=== PATIENT | female | born 1990 | race Caucasian/White ===

== ENCOUNTER 2023-02-11 12:57 | Inpatient (IN) ==
[2023-02-11 14:14] LABS: Basophils # (auto) 0.05 K/uL (0.00-0.20); Eosinophils # (auto) 0.01 K/uL (0.00-0.50); Eosinophils % (auto) 0.2 %; Hematocrit (blood only) 38.7 % (37.0-47.0); Immature Granulocytes # (auto) 0.01 K/uL (0.01-0.20); Immature Granulocytes % (auto) 0.2 %; Lymphocytes # (auto) 1.19 K/uL (1.20-3.40); Lymphocytes % (auto) 24.6 %; Mean Corpuscular Hemoglobin 24.6 pg (25.0-34.0); Mean Corpuscular Volume 79.3 fL (80.0-100.0); Mean Platelet Volume 11.3 fL (9.4-12.4); Monocytes # (auto) 0.61 K/uL (0.11-0.59); Monocytes % (auto) 12.6 %; Neutrophils # (auto) 2.96 K/uL (1.40-6.50); Neutrophils % (auto) 61.4 %; Platelet Count 342 K/uL (130-400); RDW Coefficient of Variation 15.5 % (11.5-14.5); RDW Standard Deviation 44.4 fL (36.4-46.3); Red Blood Count 4.88 M/uL (4.20-5.40); White Blood Count 4.83 K/ul (4.8-10.8)
[2023-02-11 14:24] LABS: Acetaminophen < 3 ug/ml (10-30); Salicylate < 3.0 mg/dl (3.0-30)
[2023-02-11 14:27] LABS: Albumin Globulin Ratio 1.1 (0.9-2); Albumin Level 4.2 gm/dl (3.4-5.0); BUN Creatinine Ratio 10.9 (10-20); Bilirubin,Total 0.6 mg/dl (0.2-1.0); Calcium 9.6 mg/dl (8.6-10.3); Creatinine Clr Calc Pharmacy 151.7 ml/min; Est GFR (African American) 143.8 ml/min; Est GFR (Non-African American) 124.1 ml/min; Globulin 3.7 gm/dl (2.5-4.0); Potassium 2.9 mmol/L (3.5-5.1); Total Protein 7.9 gm/dl (6.0-8.3)
[2023-02-11 14:40] LABS: Thyroid Stimulating Hormone 1.287 uIu/ml (0.300-4.500)
--- NOTE | 2023-02-11 15:01 | Emergency Department Note ---
Impression & Plan Suicidal ideation, Major depressive disorder, recurrent, severe without psychotic features ED Provider Note NAME: SHADY RASMUSSEN AGE: 32 SEX: F : 1990 ARRIVES VIA: Walk-In INFORMANT: Patient, ED PROVIDER(S): Richard Fowler MD CHIEF COMPLAINT: SI HPI: This is a 32-year-old female presenting for suicidal ideation. Patient states that she was here about 1 to 2 weeks ago for her suicide ideation. She states that she had an inpatient stay at [facility]. During the stay she did not feel that she got the help she needed and actually feels the same if not worse than previously. She is still suicidal, has no energy to live. She states she has had thoughts of strangling/hanging herself. She is requesting voluntary admission for mental health treatment. She has had no medical issues at this time including fever, chills, nausea, vomiting, chest pain, shortness of breath. She does have a history of idiopathic intracranial hypertension but has had no headache or other symptoms. ROS: See above HPI for pertinent positives & negatives. A total of 10 systems reviewed and were otherwise negative. PAST MEDICAL HISTORY: See Below PAST SURGICAL HISTORY: See Below FAMILY HISTORY: See Below SOCIAL HISTORY: See Below HOME MEDICATIONS: See Below ALLERGIES: See Below VITALS: See Below PHYSICAL EXAMINATION: General: resting comfortably in no acute distress Head: Normocephalic and atraumatic Eyes: Normal inspection, extraocular muscles intact Ear, nose, throat: Normal external exam Neck: Normal range of motion Respiratory: lungs clear to auscultation bilaterally Cardiovascular: Regular rate/rhythm, no murmur GI: soft, nontender, no guarding or rebound Extremities: nontender, moves all extremities Neuro: The patient awake and alert, appropriately conversive, no focal deficits, symmetric faces Skin: Warm, dry, and intact Psych: Tearful, withdrawn MEDICAL DECISION MAKING: This is a 32-year-old female presenting for suicidal ideation. We will screening blood work, patient has no acute medical complaints at this time. Patient's medical screening exam here is reassuring. Patient is medically clear for psychiatric involvement. Patient will be referred to psychiatric floor here. Triage Nursing notes reviewed. 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 Required: No Beliefs That Will Affect Care: None Feels Safe at Home: Yes Gender Identity: Female Assistive Devices: None Allergies Allergies Allergy/AdvReac Type Severity Reaction Status Date / Time amoxicillin Allergy Intermediate Rash Verified 08/23/22 22:00 clavulanic acid Allergy Intermediate Rash Verified 08/23/22 22:00 Home Meds Home Medications Medication Instructions Recorded Confirmed acetazolamide 500 mg 500 mg PO BID 02/12/23 02/12/23 capsule,extended release sertraline 50 mg tablet 50 mg PO DAILY 02/12/23 02/12/23 Results & Data (ED) Vital Signs Vital Signs - 24 hr 02/11/23 13:05 02/11/23 13:30 Temperature 36.8 C 36.8 C Temperature Source Temporal Artery Scan Oral Pulse Rate 72 Pulse Rate [Bilateral] 72 Respiratory Rate 20 18 Respiratory Effort / Characteristics Non-Labored Spontaneous Respiratory Depth Normal Blood Pressure 119/87 Blood Pressure [Right Arm] 119/87 Blood Pressure Mean 97 Blood Pressure Mean [Right Arm] 97 Pulse Oximetry 97 97 Oxygen Delivery Method Room Air Room Air Sepsis Recent Fever Within 48 Hours No Sepsis New/Unexplained Change in Mental Status No Sepsis Action Taken by Nursing No Action Required Laboratory Data 02/11/23 13:32 02/13/23 17:34 Lab Results 02/11/23 02/11/23 02/11/23 Range/Units 13:32 14:15 16:50 WBC 4.83 (4.8-10.8) K/ul RBC 4.88 (4.20-5.40) M/uL Hgb 12.0 (12.0-16.0) g/dl Hct 38.7 (37.0-47.0) % MCV 79.3 L (80.0-100.0) fL MCH 24.6 L (25.0-34.0) pg MCHC 31.0 L (32.0-36.0) g/dL RDW Std Deviation 44.4 (36.4-46.3) fL RDW Coeff of Krista 15.5 H (11.5-14.5) % Plt Count 342 (130-400) K/uL MPV 11.3 (9.4-12.4) fL Immature Gran % (Auto) 0.2 % Neut % (Auto) 61.4 % Lymph % (Auto) 24.6 % Grant % (Auto) 12.6 % Eos % (Auto) 0.2 % Baso % (Auto) 1.0 % Neut # (Auto) 2.96 (1.40-6.50) K/uL Lymph # (Auto) 1.19 L (1.20-3.40) K/uL Grant # (Auto) 0.61 H (0.11-0.59) K/uL Eos # (Auto) 0.01 (0.00-0.50) K/uL Baso # (Auto) 0.05 (0.00-0.20) K/uL Immature Gran # (Auto) 0.01 (0.01-0.20) K/uL ESR 26 H (0-20) mm/hr Sodium 138 (136-145) mmol/L Potassium 2.9 L (3.5-5.1) mmol/L Chloride 99 (98-107) mmol/L Carbon Dioxide 25 (21-32) mmol/L Anion Gap 14 H (3-11) BUN 6 (6-23) mg/dl Creatinine 0.55 L (0.6-1.2) mg/dl Est Cr Clr Drug Dosing 151.7 ml/min Est GFR ( Amer) 143.8 ml/min Est GFR (Non-Af Amer) 124.1 ml/min BUN/Creatinine Ratio 10.9 (10-20) Glucose 92 (70-99(Fasting)) mg/dl Calcium 9.6 (8.6-10.3) mg/dl Total Bilirubin 0.6 (0.2-1.0) mg/dl AST 16 (13-39) U/L ALT 14 (7-52) U/L Alkaline Phosphatase 52 (34-104) U/L Total Protein 7.9 (6.0-8.3) gm/dl Albumin 4.2 (3.4-5.0) gm/dl Globulin 3.7 (2.5-4.0) gm/dl Albumin/Globulin Ratio 1.1 (0.9-2) Vitamin B12 846 (180-914) pg/ml 25-OH Vitamin D Total 25.0 L (30-100) ng/ml Folate 18.04 (>5.38) ng/ml TSH 1.287 (0.300-4.500) uIu/ml Urine Color Yellow Urine Appearance Cloudy A (Clear) Urine pH 6.5 (4.5-7.5) Ur Specific [place] 1.016 (1.000-1.030) Urine Protein Negative (Negative) Urine Glucose (UA) Negative (Negative) Urine Ketones 4+ H (Negative) Urine Blood Negative (Negative) Urine Nitrite Negative (Negative) Urine Bilirubin Negative (Negative) Urine Urobilinogen Negative (Negative) Ur Leukocyte Esterase Negative (Negative) Urine WBC (Auto) 1-5 (0-5) /hpf Urine RBC (Auto) 0-4 (0-4) /hpf U Hyaline Cast (Auto) 1-5 (0-5) /lpf U Epithel Cells (Auto) >30 H (0-5) /lpf Urine Bacteria (Auto) 1+ H (Negative) Salicylates < 3.0 L (3.0-30) mg/dl Urine Opiates Screen Neg (Neg) Ur Methadone, Qual Neg (Neg) Acetaminophen < 3 L (10-30) ug/ml Urine Barbiturates Neg (Neg) Ur Phencyclidine (PCP) Neg (Neg) U Amphetamin/Meth Scrn Neg (Neg) MDMA (Ecstasy) Screen Neg (Neg) U Benzodiazepines Scrn Neg (Neg) Ur Cocaine Metabolite Neg (Neg) U Marijuana (THC) Screen Neg (Neg) Ethyl Alcohol mg/dL < 10.0 (<10.0) mg/dl SARS-CoV-2, RNA, NAAT NEGATIVE (NEGATIVE) Administered Medications Clonazepam (Clonazepam 0.5 Mg Tab) 0.5 mg PO BID DORIS Stop: 03/14/23 20:59 Last Admin: 02/14/23 09:15 Dose: 0.5 mg Documented By: Admin: 02/13/23 21:32 Dose: 0.5 mg Documented By: Admin: 02/13/23 08:49 Dose: 0.5 mg Documented By: Admin: 02/12/23 20:49 Dose: 0.5 mg Documented By: RB Ergocalciferol (Ergocalciferol 50,000 Units 1250 Mcg Cap) 50,000 units PO SuWe@0900 [facility] Stop: 03/15/23 16:29 Last Admin: 02/13/23 17:46 Dose: 50,000 units Documented By: CHIP Lorazepam (Lorazepam 0.5 Mg Tab) 0.5 mg PO BID PRN PRN Reason: Anxiety Stop: 03/13/23 21:02 Last Admin: 02/13/23 06:33 Dose: 0.5 mg Documented By: Admin: 02/12/23 06:21 Dose: 0.5 mg Documented By: LIN Potassium Chloride (Potassium Chloride 20 Meq/15 Ml Udc) 20 meq PO BID DORIS Stop: 03/15/23 20:59 Last Admin: 02/14/23 09:16 Dose: 20 meq Documented By: Admin: 02/13/23 21:30 Dose: 20 meq Documented By: CHIP Sertraline HCl (Sertraline Hcl 50 Mg Tablet) 150 mg PO QAM [facility] Stop: 03/15/23 08:59 Last Admin: 02/14/23 09:15 Dose: 150 mg Documented By: Admin: 02/13/23 08:50 Dose: 150 mg Documented By: FRANSISCA Discontinued Medications Clonazepam (Clonazepam 0.5 Mg Tab) 0.5 mg PO NOW STA Stop: 02/12/23 15:27 Last Admin: 02/12/23 15:32 Dose: 0.5 mg Documented By: TLF Potassium Chloride (Potassium Chloride Crtab 20 Meq Tabcr) 20 meq PO BID DORIS Stop: 03/13/23 20:59 Last Admin: 02/13/23 08:49 Dose: 20 meq Documented By: Admin: 02/12/23 20:49 Dose: 20 meq Documented By: Admin: 02/12/23 10:05 Dose: 20 meq Documented By: Admin: 02/11/23 21:33 Dose: 20 meq Documented By: REY Sertraline HCl (Sertraline Hcl 100 Mg Tablet) 100 mg PO QAM [facility] Stop: 03/14/23 08:59 Last Admin: 02/12/23 08:46 Dose: 100 mg Documented By: ADONIS Sertraline HCl (Sertraline Hcl 50 Mg Tablet) 50 mg PO ONE ONE Stop: 02/12/23 13:46 Last Admin: 02/12/23 15:32 Dose: 50 mg Documented By: TLF Discharge Plan Visit Data Chief Complaint: Mental Health Evaluation Stated Complaint: MENTAL HALTH EVAL ED Provider: Richard Fowler Discharge Problem: Suicidal ideation, Major depressive disorder, recurrent, severe without psychotic features Patient Disposition: Admitted As Inpatient Discharge Instructions Interventions: ED Discharge Assessment Last Done: 02/11/23 18:20
[2023-02-11 15:02] LABS: Appearance Urine Cloudy (Clear); Bacteria Urine Automated 1+ (Negative); Bilirubin Urine Negative (Negative); Blood Urine Negative (Negative); Color Urine Yellow; Epithelial Cell Urine Auto >30 /lpf (0-5); Glucose Urine UA Negative (Negative); Ketones Urine 4+ (Negative); Leukocyte Esterase Urine Negative (Negative); Nitrite Urine Negative (Negative); Protein Urine Negative (Negative); RBC Urine Automated 0-4 /hpf (0-4); Specific Gravity Urine 1.016 (1.000-1.030); Urobilinogen Urine Negative (Negative); pH Urine 6.5 (4.5-7.5)
[2023-02-11 15:33] LABS: Amphetamines+Metham, Urine Neg (Neg); Barbiturates, Urine Neg (Neg); Benzodiazepine, Urine Neg (Neg); Cocaine, Urine Neg (Neg); MDMA (Ecstacy), Urine Neg (Neg); Marijuana, Urine Neg (Neg); Methadone, Urine Neg (Neg); Opiate, Urine Neg (Neg); Phencyclidine, Urine Neg (Neg)
--- NOTE | 2023-02-11 18:17 | Emergency Department Note ---
ED Visit Note Patient signed out to me at change of shift from Dr. Fowler. Vital signs stable during my shift. COVID test added to assist with possible placement. Patient admitted to [address] signed by me. .
[2023-02-11] MEDS ORDERED: SODIUM CHLORIDE 0.65% NA SOLN 45 ML (OCEAN) PRN (19:21)
[2023-02-11] MEDS ORDERED: hydrOXYzine HCl 25 MG TAB PO PRN ×2 (19:21)
[2023-02-11] MEDS ORDERED: ALUMINUM/MAGNESIUM SUSP 30 ML UDC PO PRN (19:21)
[2023-02-11] MEDS ORDERED: ACETAMINOPHEN 325 MG TAB PO PRN (19:21)
[2023-02-11] MEDS ORDERED: MAGNESIUM HYDROXIDE SUSP 30 ML UDC PO PRN (19:21)
[2023-02-11] MEDS ORDERED: BISMUTH SUBSALICYLATE LIQD 236 ML PO PRN (19:21)
[2023-02-11 20:47] LABS: Folate (Folic Acid),Ser orPlas 18.04 ng/ml (>5.38)
[2023-02-11] MEDS: POTASSIUM CHLORIDE CRTAB 20 MEQ TABCR PO SCH (21:33)
[2023-02-12] MEDS: LORazepam 0.5 MG TAB PO PRN (06:21)
[2023-02-12] MEDS ORDERED: SERTRALINE HCL 100 MG TABLET PO SCH (09:00)
[2023-02-12] MEDS: POTASSIUM CHLORIDE CRTAB 20 MEQ TABCR PO SCH ×2 (10:05→20:49)
[2023-02-12] MEDS ORDERED: SERTRALINE HCL 50 MG TABLET PO ONE (13:45)
[2023-02-12] MEDS ORDERED: clonazePAM 0.5 MG TAB PO STA (15:26)
--- NOTE | 2023-02-12 20:15 | History & Physical ---
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 She is recently back on 2/3 the previous dose and reporting feeling overwhelmed. Much of this appears to represent anxiety, including fears of what she "might do". It seems likely that resuming the previously effective sertraline dose will eventually help. Right now the anxiety is sufficiently severe as to represent a significant risk factor for suicide. Hypokalemia seems very likely a result of recently-stopped acetazolamide but for now needs to be replenished. It's unclear how the pseudotumor cerebri might do without treatment but pt prefers not to resume acetazolamide. Overall I spent a total of 73 minutes for this admission including review of chart records, review of test results, direct evaluation of the patient [id number], counseling the patient, reconciling and ordering medication, medication education with the patient, risk assessment, discussion during interdisciplinary treatment rounds, and documentation in the electronic health record. (1) Major depressive disorder, recurrent, severe without psychotic features: (2) Obsessive compulsive disorder: (3) Suicidal ideation: (4) Idiopathic intracranial hypertension: (5) Vitamin D deficiency: (6) Hypokalemia: Plan The patient was admitted to the [facility] ([facility]) on q15 minute checks (behavioral with suicide precautions) for safety.The patient will participate in group, recreational, and milieu therapies and will be offered additional individual and family sessions as clinically appropriate. * increase sertraline to 150 mg daily * start ergocalciferol 50,000 IU twice weekly * start KCl 20 mEq BID Inventory Assets Strengths: supportive relationships, voluntary, good insight, intelligent employed, Needs: safety and stabilization, medication adjustment, additional coping skills, increased outpatient services Suicide Risk Level Suicide Risk Level: High-Moderate (q15 min suicide checks) (reports feeling safe now but continues to have suicidal thoughts) Risk Factors Assessment Male: No : Yes Do You Have Access To A Gun?: No Health Problems: Yes Mental Health Diagnoses: Yes Substance Use Disorders: Yes Previous Attempt: No Previous Psychiatric Hospitalization: Yes Hopelessness: Yes Protective Factors Assessment Responsible for Young Children: No 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 Chief Complaint "I'm not any better". History of Present Illness As part of a thorough review of the available medical records, I have read and confirmed the following note by the ED physician: "This is a 32-year-old female presenting for suicidal ideation. Patient states that she was here about 1 to 2 weeks ago for her suicide ideation. She states that she had an inpatient stay at [facility]. During the stay she did not feel that she got the help she needed and actually feels the same if not worse than previously. She is still suicidal, has no energy to live. She states she has had thoughts of strangling/hanging herself. She is requesting voluntary admission for mental health treatment. She has had no medical issues at this time including fever, chills, nausea, vomiting, chest pain, shortness of breath. She does have a history of idiopathic intracranial hypertension but has had no headache or other symptoms. " the following note by the ED psychiatric leather case finisher: "Met with patient bedside to complete mental health evaluation. Patient presents sad, depressed, anxious, tearful throughout evaluation, but remains cooperative in answering all questions asked of him. Patient was admitted to [facility] on 02/02/2023 and recently discharged on Saturday. Patient did not believe her stay was helpful and felt the programming was very disorganized. Immediately upon discharge on Saturday, she began having fairly intense suicidal ideations which continued to worsen over the weekend. Patient continues to have suicidal ideations, but no definite plan, but states, not if, but when. Patient reports she has been having some gruesome obsessive thoughts of killing herself via strangulation. Patient has also experienced dark thoughts of other people dying, denies homicidal ideations or aggressive/assaultive behaviors. Patient does not feel safe at home with th sigrid thoughts she is having and believes she needs help. While patient was admitted at [facility], they were titrating her Zoloft up and currently she is taking 100mg for the past 4 days. Patient suspects that this may be causing worsening negative thoughts. Patient is diagnosed with MDD, OCD and NADEEM. Patient has been admitted previously in the past at [facility], [facility] and a facility in [place]. Patient identifies stressors as ongoing mental health issues, job and financial. Patient reports depressive symptoms as bouts of crying, feelings of helpless/hopelessness, self-devaluation, guilt, loss of daily functioning, lack of motivation, isolating, anhedonia, poor concentration, decrease in ADLs, appetite and sleep, reporting 4-5 hours a night. Patient describes severe anxiety on most days with symptoms of chest discomfort, restlessness, skin crawling, numbness and feeling that arms are burning with occasional panic attacks. Patient reports about 1.5 years ago she used to abuse alcohol and had her first drink in December, since then. Patient denes drug and tobacco use. 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 Patient especially enjoys reading, writing and spending time with friends and family. Patient has lost all interest in her activities. Patient is diagnosed with intracranial hypertension, but is not currently being treated for it." and the following note by the psychiatric liaison nurse: "Pt. presented to ED with increased SI with plan of strangulation. She states she has been experiencing increased depression, with thoughts of suicide. She does have a history of mental health treatment, [facility], [place], [place] and last at [facility] and was discharged on 02/08/23. She states it wasn't beneficial. They did titrate her Setraline to 100mg during her stay. She is prescribed this by her PCP at [facility], ( Fernanda Zelaya). She also states she had been taking .5 of Ativan PRN, however she requests to no longer take this. She denies SIB. She denies any previous SA. She states she did have her first therapy appointment with Kortney Roche. She identifies her stressors as work, financial and mental health issues. Denies any drug or alcohol use. She does report having a diagnosis of idiopathic intracranial hypertension and had been on a diuretic for this and is no longer taking it. She did sign a GENARO for mother (Cielo), Kortney Roche (therapist), Fernanda Aguirre (PCP)" Review of the medical record reveals no previous or outside psychiatric records here. Pt. carries diagnosis of major depression and OCD. Review of pertinent labs reveals they are hypokalemia and moderately low vitamin D. A urine toxicology screen was negative for all tested substrates. BAL was <10 mg/dL. Pt says that in her 20's she was diagnosed with OCD and was treated with sertraline 150 mg for some time with good response. She doesn't recall any other medication trials. She slowly gained weight and, working with her PCP, tapered the sertraline and eventually stopped it this summer. She began feeling increasingly depressed, as well as experiencing worsening obsessions which in her case take the form of gruesome images, and started feeling increasingly hopeless and eventually suicidal. She had a 6-day stay at [facility] from which she was discharged 4 days ago. During that stay, sertraline was resumed and titrated to 100 mg. Pt reports continuing to feel hopeless and suicidal. Has a history of idiopathic intracranial hypertension, diagnosed after a period of hemifacial paresthesia, intense headache, and eventually papilledema. She had increased CSF pressure on LP. She was treated with acetazolamide but stopped in last week due to dry mouth. Past Psychiatric History Current Psychiatric Diagnosis: MDD, NADEEM, OCD Previous Psych Admissions: [facility] 01/2023, [facility] in [place] Do You Have Access To A Gun?: No History of Previous Suicide Attempt: No Allergies Allergy/AdvReac Type Severity Reaction Status Date / Time amoxicillin Allergy Intermediate Rash Verified 08/23/22 22:00 clavulanic acid Allergy Intermediate Rash Verified 08/23/22 22:00 Home Medications Medication Instructions Recorded Confirmed Type acetazolamide 500 mg 500 mg PO BID 02/12/23 02/12/23 History capsule,extended release sertraline 50 mg tablet 50 mg PO DAILY 02/12/23 02/12/23 History Family History Family History of: None Alcohol History Hx of Alcohol Use Over the Past 12 Months: No (last drink in December,, hx of alcohol aubse 1.5 years ago) AUDIT Total Score: 0 Smoking Use Smoking Status: Never smoker Substance History Hx of Prescription Med Misuse Over the Past 12 Months: No Hx of Over the Counter Med Misuse Over the Past 12 Months: No Hx of Inhalent Misuse Over the Past 12 Months: No Hx of Organic Substance Use Over the Past 12 Months: No Hx of Illegal Substances/Street Drug Use Over Past 12 Months: No Problems as a Result of Past Substance Use: None Identified Personal History Living Arrangements: Apartment Beliefs That Will Affect Care: None Patient History Medical History (Updated 02/12/23 @ 20:41 by Jack Mendoza MD) Hypokalemia Idiopathic intracranial hypertension Vitamin D deficiency moderate as of 02/12/2023 Obsessive compulsive disorder Major depressive disorder, recurrent, severe without psychotic features Intracranial hypertension Social History Smoking Status: Never smoker Preferred Language: Kiswahili Communication Ability: Effective Construction Flagger Required: No Beliefs That Will Affect Care: None Feels Safe at Home: Yes Gender Identity: Female Assistive Devices: None Review of Systems Psychiatric: + depression, + hopelessness, + anhedoni a, + suicidal ideation, + anxiety and + difficulty concentrating; no hallucinations and no auditory hallucinations Physical Exam Psychiatric: Orientation: alert, oriented to person, oriented to place, oriented to time and cooperative Apperance: appropriately dressed, appropriately groomed and appeared stated age Eye Contact: good eye contact Motor Behavior: + psychomotor retardation Speech: normal rate/rhythm/volume of speech Affect: + depressed affect, + anxious affect and mood congruent with affect Mood: + depressed mood and + anxious mood Thought Process: linear/logical thought process and clear/coherent thought process Thought Content: reality based without delusions and + hopelessness Suicidal Thoughts: denies suicidal plan and denies suicidal intent; + reports suicidal thoughts Homicidal Thoughts: denies homicidal thoughts Hallucinations: no auditory hallucinations and no visual hallucinations Cognition: recent memory grossly intact, remote memory grossly intact, attention grossly intact and language grossly intact Estimated Intelligence: consistent with education level Insight: + fair insight Judgment: + fair judgement Vital Signs (Past 24 Hours): Last Vital Signs Temp 36.8 C 02/12/23 06:44 Pulse 80 02/12/23 06:45 Resp 18 02/12/23 06:44 BP 113/77 02/12/23 06:45 Pulse Ox 94 02/11/23 18:20 O2 Del Method Room Air 02/11/23 18:58 Exam Statement: A physical exam was performed in the ED for the purposes of medical clearance. I accept that physical as correct and adequate for the purposes of the inpatient physical exam. Results & Data ([facility]) Laboratory Results Laboratory Results - last 24 hr 02/11/23 02/11/23 02/11/23 13:32 14:15 16:50 WBC 4.83 RBC 4.88 Hgb 12.0 Hct 38.7 MCV 79.3 L MCH 24.6 L MCHC 31.0 L RDW Std Deviation 44.4 RDW Coeff of Krista 15.5 H Plt Count 342 MPV 11.3 Immature Gran % (Auto) 0.2 Neut % (Auto) 61.4 Lymph % (Auto) 24.6 [place] % (Auto) 12.6 Eos % (Auto) 0.2 Baso % (Auto) 1.0 Neut # (Auto) 2.96 Lymph # (Auto) 1.19 L [place] # (Auto) 0.61 H Eos # (Auto) 0.01 Baso # (Auto) 0.05 Immature Gran # (Auto) 0.01 ESR 26 H Sodium 138 Potassium 2.9 L Chloride 99 Carbon Dioxide 25 Anion Gap 14 H BUN 6 Creatinine 0.55 L Est Cr Clr Drug Dosing 151.7 Est GFR ( Amer) 143.8 Est GFR (Non-Af Amer) 124.1 BUN/Creatinine Ratio 10.9 Glucose 92 Calcium 9.6 Total Bilirubin 0.6 AST 16 ALT 14 Alkaline Phosphatase 52 Total Protein 7.9 Albumin 4.2 Globulin 3.7 Albumin/Globulin Ratio 1.1 Vitamin B12 846 25-OH Vitamin D Total 25.0 L Folate 18.04 TSH 1.287 Urine Color Yellow Urine Appearance Cloudy A Urine pH 6.5 Ur Specific [place] 1.016 Urine Protein Negative Urine Glucose (UA) Negative Urine Ketones 4+ H Urine Blood Negative Urine Nitrite Negative Urine Bilirubin Negative Urine Urobilinogen Negative Ur Leukocyte Esterase Negative Urine WBC (Auto) 1-5 Urine RBC (Auto) 0-4 U Hyaline Cast (Auto) 1-5 U Epithel Cells (Auto) >30 H Urine Bacteria (Auto) 1+ H Salicylates < 3.0 L Urine Opiates Screen Neg Ur Methadone, Qual Neg Acetaminophen < 3 L Urine Barbiturates Neg Ur Phencyclidine (PCP) Neg U Amphetamin/Meth Scrn Neg MDMA (Ecstasy) Screen Neg U Benzodiazepines Scrn Neg Ur Cocaine Metabolite Neg U Marijuana (THC) Screen Neg Ethyl Alcohol mg/dL < 10.0 SARS-CoV-2, RNA, NAAT NEGATIVE Current Inpatient Medications Current Inpatient Medications: Current Inpatient Medications Acetaminophen (Acetaminophen 325 Mg Tab) 650 mg PO Q4H PRN PRN Reason: Headache or Minor Fever Stop: 03/13/23 19:20 Al Hydrox/Mg Hydrox/Simethicone (Aluminum/Magnesium Susp 30 Ml Udc) 30 ml PO Q4H PRN PRN Reason: GI Upset Stop: 03/13/23 19:20 Bismuth Subsalicylate (Bismuth Subsalicylate Liqd 236 Ml) 15 ml PO PRN PRN PRN Reason: Loose Stool Stop: 03/13/23 19:20 Hydroxyzine HCl (Hydroxyzine Hcl 25 Mg Tab) 50 mg PO HSZ PRN PRN Reason: Insomnia Stop: 03/13/23 19:20 Hydroxyzine HCl (Hydroxyzine Hcl 25 Mg Tab) 25 mg PO Q4H PRN PRN Reason: Anxiety Stop: 03/13/23 19:20 Lorazepam (Lorazepam 0.5 Mg Tab) 0.5 mg PO BID PRN PRN Reason: Anxiety Stop: 03/13/23 21:02 Last Admin: 02/12/23 06:21 Dose: 0.5 mg Magnesium Hydroxide (Magnesium Hydroxide Susp 30 Ml Udc) 30 ml PO DAILY PRN PRN Reason: Constipation Stop: 03/13/23 19:20 Potassium Chloride (Potassium Chloride Crtab 20 Meq Tabcr) 20 meq PO BID DORIS Stop: 03/13/23 20:59 Last Admin: 02/12/23 10:05 Dose: 20 meq Sertraline HCl (Sertraline Hcl 100 Mg Tablet) 100 mg PO QAM DORIS Stop: 03/14/23 08:59 Last Admin: 02/12/23 08:46 Dose: 100 mg Sodium Chloride (Sodium Chloride 0.65% Na Soln 45 Ml ([place])) 1 - 2 sprays NA PRN PRN PRN Reason: Nasal Dryness/Congestion Stop: 03/13/23 19:20
[2023-02-12] MEDS: clonazePAM 0.5 MG TAB PO SCH (20:49)
[2023-02-13] MEDS: LORazepam 0.5 MG TAB PO PRN (06:33)
[2023-02-13] MEDS: clonazePAM 0.5 MG TAB PO SCH ×2 (08:49→21:32)
[2023-02-13] MEDS: POTASSIUM CHLORIDE CRTAB 20 MEQ TABCR PO SCH (08:49)
[2023-02-13] MEDS: SERTRALINE HCL 50 MG TABLET PO SCH (08:50)
--- NOTE | 2023-02-13 10:22 | Psychiatric Progress Note ---
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 She is recently back on 2/3 the previous dose and reporting feeling overwhelmed. Much of this appears to represent anxiety, including fears of what she "might do". It seems likely that resuming the previously effective sertraline dose will eventually help. Right now the anxiety is sufficiently severe as to represent a significant risk factor for suicide. 02/12/2023: Reports a bit of improvement in mood overall. Woke early feeling very anxious, got PRN lorazepam. Discussed that anxiety seems to be the primary factor in how overwhelmed she feels. Will continue clonazepam trial for this. Discussed her IIH at some length, particularly in terms of relapse risk off acetazolamide. She's not very concerned and would like to remain off that med. Has tolerated increase of sertraline to 150 mg, on which dose she did well in the past. She has noted no adverse effect attributable to any of her medication (including lorazepam, which she usually dislikes). 02/12/2023: Hypokalemia seems very likely a result of recently-stopped acetazolamide but for now needs to be replenished. It's unclear how the pseudotumor cerebri might do without treatment but pt prefers not to resume acetazolamide. (1) Major depressive disorder, recurrent, severe without psychotic features: (2) Obsessive compulsive disorder: (3) Suicidal ideation: (4) Idiopathic intracranial hypertension: (5) Vitamin D deficiency: (6) Hypokalemia: Plan 02/13/2023: * continue sertraline to 150 mg daily - increased 02/12/2023 from prior to admision dose of 100 mg (but previous effective dose had been 150 mg) * continue clonazepam 0.5 mg BID - started 02/12/2023 * continue ergocalciferol 50,000 IU twice weekly - started 02/12/2023 * continue KCl 20 mEq BID * basic metabolic panel, largely to recheck potassium 02/12/2023: The patient was admitted to the [facility] ([facility]) on q15 minute checks (behavioral with suicide precautions) for safety.The patient will participate in group, recreational, and milieu therapies and will be offered additional individual and family sessions as clinically appropriate. * increase sertraline to 150 mg daily * start ergocalciferol 50,000 IU twice weekly * start KCl 20 mEq BID Inventory Assets Strengths: supportive relationships, voluntary, good insight, intelligent employed, Needs: safety and stabilization, medication adjustment, additional coping skills, increased outpatient services Suicide Risk Level Suicide Risk Level: High-Moderate (q15 min suicide checks) (reports feeling safe now but continues to have suicidal thoughts) Risk Factors Assessment Male: No : Yes Do You Have Access To A Gun?: No Health Problems: Yes Mental Health Diagnoses: Yes Substance Use Disorders: Yes Previous Attempt: No Previous Psychiatric Hospitalization: Yes Hopelessness: Yes Protective Factors Assessment Responsible for Young Children: No 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 Chief Complaint "Doing OK". Review of Systems Sleep Information Total Hours of Sleep: 7.5 Meal Information Percent Meal Consumed - Breakfast: 25 Percent Meal Consumed - Lunch: 100 Percent Meal Consumed - Dinner: 10 Subjective Subjective The patient was seen and assessed and interval progress reviewed in a multidisciplinary team meeting with the treatment team. For details, see the "Impression" section. Overall I spent a total of 40 minutes for this inpatient follow-up including review of chart records, review of test results, direct evaluation of the patient [id number], counseling the patient, reconciling and ordering medication, medication education with the patient, risk assessment, discussion during interdisciplinary treatment rounds, and documentation in the electronic health record. Physical Exam Psychiatric Orientation: alert, oriented to person, oriented to place, oriented to time and cooperative Apperance: appropriately dressed, appropriately groomed and appeared stated age Eye Contact: good eye contact Motor Behavior: + psychomotor retardation Speech: normal rate/rhythm/volume of speech Affect: + depressed affect, + anxious affect and mood congruent with affect Mood: + depressed mood and + anxious mood Thought Process: linear/logical thought process and clear/coherent thought process Thought Content: reality based without delusions and + hopelessness Suicidal Thoughts: denies suicidal plan and denies suicidal intent; + reports suicidal thoughts Homicidal Thoughts: denies homicidal thoughts Hallucinations: no auditory hallucinations and no visual hallucinations Cognition: recent memory grossly intact, remote memory grossly intact, attention grossly intact and language grossly intact Estimated Intelligence: consistent with education level Insight: + fair insight Judgment: + fair judgement Vital Signs (Past 24 Hours) Last Vital Signs Temp 36.3 C L 02/13/23 06:35 Pulse 82 02/13/23 06:36 Resp 16 02/13/23 06:35 BP 120/83 02/13/23 06:36 Pulse Ox 94 02/11/23 18:20 O2 Del Method Room Air 02/11/23 18:58 Results & Data ([facility]) Laboratory Results Laboratory Results - last 24 hr 02/12/23 15:11 RYAN Screen Pending Current Inpatient Medications Current Inpatient Medications: Current Inpatient Medications Acetaminophen (Acetaminophen 325 Mg Tab) 650 mg PO Q4H PRN PRN Reason: Headache or Minor Fever Stop: 03/13/23 19:20 Al Hydrox/Mg Hydrox/Simethicone (Aluminum/Magnesium Susp 30 Ml Udc) 30 ml PO Q4H PRN PRN Reason: GI Upset Stop: 03/13/23 19:20 Bismuth Subsalicylate (Bismuth Subsalicylate Liqd 236 Ml) 15 ml PO PRN PRN PRN Reason: Loose Stool Stop: 03/13/23 19:20 Clonazepam (Clonazepam 0.5 Mg Tab) 0.5 mg PO BID DORIS Stop: 03/14/23 20:59 Last Admin: 02/13/23 08:49 Dose: 0.5 mg Hydroxyzine HCl (Hydroxyzine Hcl 25 Mg Tab) 50 mg PO HSZ PRN PRN Reason: Insomnia Stop: 03/13/23 19:20 Hydroxyzine HCl (Hydroxyzine Hcl 25 Mg Tab) 25 mg PO Q4H PRN PRN Reason: Anxiety Stop: 03/13/23 19:20 Lorazepam (Lorazepam 0.5 Mg Tab) 0.5 mg PO BID PRN PRN Reason: Anxiety Stop: 03/13/23 21:02 Last Admin: 02/13/23 06:33 Dose: 0.5 mg Magnesium Hydroxide (Magnesium Hydroxide Susp 30 Ml Udc) 30 ml PO DAILY PRN PRN Reason: Constipation Stop: 03/13/23 19:20 Potassium Chloride (Potassium Chloride Crtab 20 Meq Tabcr) 20 meq PO BID DORIS Stop: 03/13/23 20:59 Last Admin: 02/13/23 08:49 Dose: 20 meq Sertraline HCl (Sertraline Hcl 50 Mg Tablet) 150 mg PO QAM DORIS Stop: 03/15/23 08:59 Last Admin: 02/13/23 08:50 Dose: 150 mg Sodium Chloride (Sodium Chloride 0.65% Na Soln 45 Ml ([place])) 1 - 2 sprays NA PRN PRN PRN Reason: Nasal Dryness/Congestion Stop: 03/13/23 19:20 Mental Health & Subst Abuse Tx Therapist Name of Therapist: [facility] Post Discharge Appointments Primary Care Physician Name Of Family Doctor/PCP: KEYANNA
[2023-02-13] MEDS: ERGOCALCIFEROL 50,000 UNITS 1250 MCG CAP PO SCH (17:46)
[2023-02-13 18:23] LABS: BUN Creatinine Ratio 11.5 (10-20); Calcium 9.4 mg/dl (8.6-10.3); Creatinine Clr Calc Pharmacy 136.3 ml/min; Potassium 3.7 mmol/L (3.5-5.1)
[2023-02-13] MEDS: POTASSIUM CHLORIDE 20 MEQ/15 ML UDC PO SCH (21:30)
[2023-02-14] MEDS: clonazePAM 0.5 MG TAB PO SCH (09:15)
[2023-02-14] MEDS: SERTRALINE HCL 50 MG TABLET PO SCH (09:15)
[2023-02-14] MEDS: POTASSIUM CHLORIDE 20 MEQ/15 ML UDC PO SCH ×2 (09:16→20:58)
--- NOTE | 2023-02-14 11:15 | Psychiatric Progress Note ---
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 She is recently back on 2/3 the previous dose and reporting feeling overwhelmed. Much of this appears to represent anxiety, including fears of what she "might do". It seems likely that resuming the previously effective sertraline dose will eventually help. Right now the anxiety is sufficiently severe as to represent a significant risk factor for suicide. 02/14/2023: Pt says she doesn't think she feels much better than at admission. She has been sleeping more and presents as more engaged and interactive. However, yesterday evening she was distressed by ruminative/obsessive thoughts and feeling overwhelmed by her inability to control them. Spoke about cognitive- behavioral approaches including distraction, thought-stopping. In light of how anxious she is about the obsessions, discussed increasing clonazepam. While this certainly would have no benefit for obsessive thoughts themselves, the secondary anxiety spawned by them should be responsive to anxiolytic medication. Pt has noted no daytime sedation or any other adverse effect from the current dose. Potassium level was 3.6 mmol/L on current replenishment regimen. 02/13/2023: Reports a bit of improvement in mood overall. Woke early feeling very anxious, got PRN lorazepam. Discussed that anxiety seems to be the primary factor in how overwhelmed she feels. Will continue clonazepam trial for this. Discussed her IIH at some length, particularly in terms of relapse risk off acetazolamide. She's not very concerned and would like to remain off that med. Has tolerated increase of sertraline to 150 mg, on which dose she did well in the past. She has noted no adverse effect attributable to any of her medication (including lorazepam, which she usually dislikes). 02/12/2023: Hypokalemia seems very likely a result of recently-stopped acetazolamide but for now needs to be replenished. It's unclear how the pseudotumor cerebri might do without treatment but pt prefers not to resume acetazolamide. (1) Major depressive disorder, recurrent, severe without psychotic features: (2) Obsessive compulsive disorder: (3) Suicidal ideation: (4) Idiopathic intracranial hypertension: (5) Vitamin D deficiency: (6) Hypokalemia: Plan 02/14/2023: * continue sertraline 150 mg daily - increased 02/12/2023 from prior to admision dose of 100 mg (but previous effective dose had been 150 mg) * increase clonazepam to 1 mg BID - started 02/12/2023 at 0.5 mg BID * continue ergocalciferol 50,000 IU twice weekly - started 02/12/2023 * continue KCl 20 mEq BID 02/13/2023: * continue sertraline 150 mg daily - increased 02/12/2023 from prior to admision dose of 100 mg (but previous effective dose had been 150 mg) * continue clonazepam 0.5 mg BID - started 02/12/2023 * continue ergocalciferol 50,000 IU twice weekly - started 02/12/2023 * continue KCl 20 mEq BID * basic metabolic panel, largely to recheck potassium 02/12/2023: The patient was admitted to the [facility] ([facility] mental health unit) on q15 minute checks (behavioral with suicide precautions) for safety.The patient will participate in group, recreational, and milieu therapies and will be offered additional individual and family sessions as clinically appropriate. * increase sertraline to 150 mg daily * start ergocalciferol 50,000 IU twice weekly * start KCl 20 mEq BID Inventory Assets Strengths: supportive relationships, voluntary, good insight, intelligent employed, Needs: safety and stabilization, medication adjustment, additional coping skills, i ncreased outpatient services Suicide Risk Level Suicide Risk Level: High-Moderate (q15 min suicide checks) (reports feeling safe now but continues to have suicidal thoughts) Risk Factors Assessment Male: No : Yes Do You Have Access To A Gun?: No Health Problems: Yes Mental Health Diagnoses: Yes Substance Use Disorders: Yes Previous Attempt: No Previous Psychiatric Hospitalization: Yes Hopelessness: Yes Protective Factors Assessment Responsible for Young Children: No 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 Chief Complaint "I'm not much better". Review of Systems Sleep Information Total Hours of Sleep: 6.25 Meal Information Percent Meal Consumed - Breakfast: 90 Percent Meal Consumed - Lunch: 75 Percent Meal Consumed - Dinner: 50 Subjective Subjective The patient was seen and assessed and interval progress reviewed in a multidisciplinary team meeting with the treatment team. For details, see the "Impression" section. Overall I spent a total of 31 minutes for this inpatient follow-up including review of chart records, review of test results, direct evaluation of the patient [id number], counseling the patient, reconciling and ordering medi cation, medication education with the patient, risk assessment, discussion during interdisciplinary treatment rounds, and documentation in the electronic health record. Physical Exam Psychiatric Orientation: alert, oriented to person, oriented to place, oriented to time and cooperative Apperance: appropriately dressed, appropriately groomed and appeared stated age Eye Contact: good eye contact Speech: normal rate/rhythm/volume of speech Affect: + depressed affect, + anxious affect and mood congruent with affect Mood: + depressed mood and + anxious mood Thought Process: linear/logical thought process and clear/coherent thought process Thought Content: reality based without delusions and + hopelessness Suicidal Thoughts: denies suicidal plan and denies suicidal intent; + reports suicidal thoughts Homicidal Thoughts: denies homicidal thoughts Hallucinations: no auditory hallucinations and no visual hallucinations Cognition: recent memory grossly intact, remote memory grossly intact, attention grossly intact and language grossly intact Estimated Intelligence: consistent with education level Insight: + fair insight Judgment: + fair judgement Vital Signs (Past 24 Hours) Last Vital Signs Temp 36.3 C L 02/14/23 06:30 Pulse 89 02/14/23 06:33 Resp 16 02/14/23 06:30 BP 116/81 02/14/23 06:33 Pulse Ox 99 02/14/23 06:30 O2 Del Method Room Air 02/14/23 06:30 Results & Data ([facility]) Laboratory Results Laboratory Results - last 24 hr 02/13/23 17:34 Sodium 138 Potassium 3.7 Chloride 101 Carbon Dioxide 28 Anion Gap 9 BUN 7 Creatinine 0.61 Est Cr Clr Drug Dosing 136.3 Est GFR ( Amer) 139.0 Est GFR (Non-Af Amer) 120.0 BUN/Creatinine Ratio 11.5 Glucose 83 Calcium 9.4 Current Inpatient Medications Current Inpatient Medications: Current Inpatient Medications Acetaminophen (Acetaminophen 325 Mg Tab) 650 mg PO Q4H PRN PRN Reason: Headache or Minor Fever Stop: 03/13/23 19:20 Al Hydrox/Mg Hydrox/Simethicone (Aluminum/Magnesium Susp 30 Ml Udc) 30 ml PO Q4H PRN PRN Reason: GI Upset Stop: 03/13/23 19:20 Bismuth Subsalicylate (Bismuth Subsalicylate Liqd 236 Ml) 15 ml PO PRN PRN PRN Reason: Loose Stool Stop: 03/13/23 19:20 Clonazepam (Clonazepam 0.5 Mg Tab) 0.5 mg PO BID DORIS Stop: 03/14/23 20:59 Last Admin: 02/14/23 09:15 Dose: 0.5 mg Ergocalciferol (Ergocalciferol 50,000 Units 1250 Mcg Cap) 50,000 units PO SuWe@0900 DORIS Stop: 03/15/23 16:29 Last Admin: 02/13/23 17:46 Dose: 50,000 units Hydroxyzine HCl (Hydroxyzine Hcl 25 Mg Tab) 50 mg PO HSZ PRN PRN Reason: Insomnia Stop: 03/13/23 19:20 Hydroxyzine HCl (Hydroxyzine Hcl 25 Mg Tab) 25 mg PO Q4H PRN PRN Reason: Anxiety Stop: 03/13/23 19:20 Lorazepam (Lorazepam 0.5 Mg Tab) 0.5 mg PO BID PRN PRN Reason: Anxiety Stop: 03/13/23 21:02 Last Admin: 02/13/23 06:33 Dose: 0.5 mg Magnesium Hydroxide (Magnesium Hydroxide Susp 30 Ml Udc) 30 ml PO DAILY PRN PRN Reason: Constipation Stop: 03/13/23 19:20 Potassium Chloride (Potassium Chloride 20 Meq/15 Ml Udc) 20 meq PO BID DORIS Stop: 03/15/23 20:59 Last Admin: 02/14/23 09:16 Dose: 20 meq Sertraline HCl (Sertraline Hcl 50 Mg Tablet) 150 mg PO QAM [facility] Stop: 03/15/23 08:59 Last Admin: 02/14/23 09:15 Dose: 150 mg Sodium Chloride (Sodium Chloride 0.65% Na Soln 45 Ml ([place])) 1 - 2 sprays NA PRN PRN PRN Reason: Nasal Dryness/Congestion Stop: 03/13/23 19:20 Mental Health & Subst Abuse Tx Psychiatrist Name of Psychiatrist: Sammy Whitt PA-C Psychiatrist's Date Of Appointment With Psychiatric Provider: 03/13/23 Time of Appointment with Psychiatrist: 9:30 AM Psychiatric Appointment Comment: [address] [facility], [place] [address] Therapist Name of Therapist: Cassie Felipe - Kortney Roche LPC Therapist's Date of Therapist Appointment: 02/18/23 Time of Therapist Appointment: 12:00 PM Therapy Appointment Comment: [address] , [place] [address] Post Discharge Appointments Primary Care Physician Name Of Family Doctor/PCP: [facility] - Dr. Sandhu Primary Care Date of Future Appointment with PCP: 02/22/23 Time of Appointment with PCP: 10:45 AM Provider Appointment Comment: [address], [address], [place] [address]
[2023-02-14] MEDS ORDERED: clonazePAM 0.5 MG TAB PO ONE (11:22)
[2023-02-14] MEDS: LORazepam 0.5 MG TAB PO PRN (16:58)
[2023-02-14] MEDS: clonazePAM 1 MG TAB PO SCH (20:57)
--- NOTE | 2023-02-15 08:59 | Psychiatric Progress Note ---
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 She is recently back on 2/3 the previous dose and reporting feeling overwhelmed. Much of this appears to represent anxiety, including fears of what she "might do". It seems likely that resuming the previously effective sertraline dose will eventually help. Right now the anxiety is sufficiently severe as to represent a significant risk factor for suicide. 02/15/2023: Pt says that she'd been very worried that her being her on Thanksgiving would burden her parents with concern and worry. They visited yesterday and she was very relieved that, while they're clearly concerned about her welfare, they think she's "where [she] should be". Reports feeling more sedated today following increase of clonazepam to 1 mg BID. Discussed dividing daytime dose of clonazepam or reducing it back to 0.5 mg and continuing 1 mg at HS. Pt notes that she felt noticeably less anxious when she woke up this morning than on previous days here and would like to continue the 1 mg HS dose. 02/14/2023: Pt says she doesn't think she feels much better than at admission. She has been sleeping more and presents as more engaged and interactive. However, yesterday evening she was distressed by ruminative/obsessive thoughts and feeling overwhelmed by her inability to control them. Spoke about cognitive- behavioral approaches including distraction, thought-stopping. In light of how anxious she is about the obsessions, discussed increasing clonazepam. While this certainly would have no benefit for obsessive thoughts themselves, the secondary anxiety spawned by them should be responsive to anxiolytic medication. Pt has noted no daytime sedation or any other adverse effect from the current dose. Potassium level was 3.6 mmol/L on current replenishment regimen. 02/13/2023: Reports a bit of improvement in mood overall. Woke early feeling very anxious, got PRN lorazepam. Discussed that anxiety seems to be the primary factor in how overwhelmed she feels. Will continue clonazepam trial for this. Discussed her IIH at some length, particularly in terms of relapse risk off acetazolamide. She's not very concerned and would like to remain off that med. Has tolerated increase of sertraline to 150 mg, on which dose she did well in the past. She has noted no adverse effect attributable to any of her medication (including lorazepam, which she usually dislikes). 02/12/2023: Hypokalemia seems very likely a result of recently-stopped acetazolamide but for now needs to be replenished. It's unclear how the pseudotumor cerebri might do without treatment but pt prefers not to resume acetazolamide. (1) Major depressive disorder, recurrent, severe without psychotic features: (2) Obsessive compulsive disorder: (3) Suicidal ideation: (4) Idiopathic intracranial hypertension: (5) Vitamin D deficiency: (6) Hypokalemia: Plan 02/15/2023: * continue sertraline 150 mg daily - increased 02/12/2023 from prior to admision dose of 100 mg (but previous effective dose had been 150 mg) * reduce clonazepam to 0.5 mg QAM & 1 mg QHS - increased 02/14/2023 to 1 mg BID, increased 02/14/2023, started 02/12/2023 at 0.5 mg BID * continue ergocalciferol 50,000 IU twice weekly - started 02/12/2023 * continue KCl 20 mEq BID 02/14/2023: * continue sertraline 150 mg daily - increased 02/12/2023 from prior to admision dose of 100 mg (but previous effective dose had been 150 mg) * increase clonazepam to 1 mg BID - started 02/12/2023 at 0.5 mg BID * continue ergocalciferol 50,000 IU twice weekly - started 02/12/2023 * continue KCl 20 mEq BID 02/13/2023: * continue sertraline 150 mg daily - increased 02/12/2023 from prior to admision dose of 100 mg (but previous effective dose had been 150 mg) * continue clonazepam 0.5 mg BID - started 02/12/2023 * continue ergocalciferol 50,000 IU twice weekly - started 02/12/2023 * continue KCl 20 mEq BID * basic metabolic panel, largely to recheck potassium 02/12/2023: The patient was admitted to the [facility] ([facility] unit) on q15 minute checks (behavioral with suicide precautions) for safety.The patient will participate in group, recreational, and milieu therapies and will be offered additional individual and family sessions as clinically appropriate. * increase sertraline to 150 mg daily * start ergocalciferol 50,000 IU twice weekly * start KCl 20 mEq BID Inventory Assets Strengths: supportive relationships, voluntary, good insight, intelligent employed, Needs: safety and stabilization, medication adjustment, additional coping skills, i ncreased outpatient services Suicide Risk Level Suicide Risk Level: High-Moderate (q15 min suicide checks) (reports feeling safe now but continues to have suicidal thoughts) Risk Factors Assessment Male: No : Yes Do You Have Access To A Gun?: No Health Problems: Yes Mental Health Diagnoses: Yes Substance Use Disorders: Yes Previous Attempt: No Previous Psychiatric Hospitalization: Yes Hopelessness: Yes Protective Factors Assessment Responsible for Young Children: No 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 Chief Complaint "[]". Review of Systems Sleep Information Total Hours of Sleep: 7.75 Meal Information Percent Meal Consumed - Breakfast: 90 Percent Meal Consumed - Lunch: 50 Percent Meal Consumed - Dinner: 10 Subjective Subjective The patient was seen and assessed and interval progress reviewed in a multidisciplinary team meeting with the treatment team. For details, see the "Impression" section. Overall I spent a total of 34 minutes for this inpatient follow-up including review of chart records, direct evaluation of the patient [id number], counseling the patient, reconciling and ordering medication, medication education with the patient, risk assessment, discussion during interdisciplinary treatment rounds, and documentation in the electronic health record. Physical Exam Psychiatric Orientation: alert, oriented to person, oriented to place, oriented to time and cooperative Apperance: appropriately dressed, appropriately groomed and appeared stated age Eye Contact: good eye contact Motor Behavior: + psychomotor retardation Speech: normal rate/rhythm/volume of speech Affect: + depressed affect, + anxious affect and mood congruent with affect Mood: + depressed mood and + anxious mood Thought Process: linear/logical thought process and clear/coherent thought process Thought Content: reality based without delusions Suicidal Thoughts: denies suicidal plan and denies suicidal intent; + reports suicidal thoughts Homicidal Thoughts: denies homicidal thoughts Hallucinations: no auditory hallucinations and no visual hallucinations Cognition: recent memory grossly intact, remote memory grossly intact, attention grossly intact and language grossly intact Estimated Intelligence: consistent with education level Insight: + fair insight Judgment: + fair judgement Vital Signs (Past 24 Hours) Last Vital Signs Temp 36.3 C L 02/15/23 06:41 Pulse 94 H 02/15/23 06:42 Resp 16 02/15/23 06:41 BP 125/85 02/15/23 06:42 Pulse Ox 99 02/14/23 06:30 O2 Del Method Room Air 02/14/23 06:30 Results & Data ([facility]) Current Inpatient Medications Current Inpatient Medications: Current Inpatient Medications Acetaminophen (Acetaminophen 325 Mg Tab) 650 mg PO Q4H PRN PRN Reason: Headache or Minor Fever Stop: 03/13/23 19:20 Al Hydrox/Mg Hydrox/Simethicone (Aluminum/Magnesium Susp 30 Ml Udc) 30 ml PO Q4H PRN PRN Reason: GI Upset Stop: 03/13/23 19:20 Bismuth Subsalicylate (Bismuth Subsalicylate Liqd 236 Ml) 15 ml PO PRN PRN PRN Reason: Loose Stool Stop: 03/13/23 19:20 Clonazepam (Clonazepam 1 Mg Tab) 1 mg PO BID DORIS Stop: 03/16/23 20:59 Last Admin: 02/14/23 20:57 Dose: 1 mg Ergocalciferol (Ergocalciferol 50,000 Units 1250 Mcg Cap) 50,000 units PO SuWe@0900 DORIS Stop: 03/15/23 16:29 Last Admin: 02/13/23 17:46 Dose: 50,000 units Hydroxyzine HCl (Hydroxyzine Hcl 25 Mg Tab) 50 mg PO HSZ PRN PRN Reason: Insomnia Stop: 03/13/23 19:20 Hydroxyzine HCl (Hydroxyzine Hcl 25 Mg Tab) 25 mg PO Q4H PRN PRN Reason: Anxiety Stop: 03/13/23 19:20 Lorazepam (Lorazepam 0.5 Mg Tab) 0.5 mg PO BID PRN PRN Reason: Anxiety Stop: 03/13/23 21:02 Last Admin: 02/14/23 16:58 Dose: 0.5 mg Magnesium Hydroxide (Magnesium Hydroxide Susp 30 Ml Udc) 30 ml PO DAILY PRN PRN Reason: Constipation Stop: 03/13/23 19:20 Potassium Chloride (Potassium Chloride 20 Meq/15 Ml Udc) 20 meq PO BID DORIS Stop: 03/15/23 20:59 Last Admin: 02/14/23 20:58 Dose: 20 meq Sertraline HCl (Sertraline Hcl 50 Mg Tablet) 150 mg PO QAM DORIS Stop: 03/15/23 08:59 Last Admin: 02/14/23 09:15 Dose: 150 mg Sodium Chloride (Sodium Chloride 0.65% Na Soln 45 Ml ([place])) 1 - 2 sprays NA PRN PRN PRN Reason: Nasal Dryness/Congestion Stop: 03/13/23 19:20 Mental Health & Subst Abuse Tx Psychiatrist Name of Psychiatrist: Sammy Solis - Alexi Whitt PA-C Psychiatrist's Date Of Appointment With Psychiatric Provider: 03/13/23 Time of Appointment with Psychiatrist: 9:30 AM Psychiatric Appointment Comment: [address] [place] [address], [place] [address] Therapist Name of Therapist: [facility] - Kortney Roche LPC Therapist's Date of Therapist Appointment: 02/18/23 Time of Therapist Appointment: 12:00 PM Therapy App[facility]ment [facility] [address] [place] [address] Post Discharge Appointments Primary Care Physician Name Of Family Doctor/PCP: [facility] - Dr. Sandhu Primary Care Date of Future Appointment with PCP: 02/22/23 Time of Appointment with PCP: 10:45 AM Provider Appointment Comment: [address], [address], [place] [address] (2) Obsessive compulsive disorder Obsessive-compulsive disorder type: mixed obsessional thoughts and acts Qualified Code(s): F42.2 - Mixed obsessional thoughts and acts
[2023-02-15] MEDS: SERTRALINE HCL 50 MG TABLET PO SCH (09:16)
[2023-02-15] MEDS: POTASSIUM CHLORIDE 20 MEQ/15 ML UDC PO SCH ×2 (09:16→21:17)
[2023-02-15] MEDS: clonazePAM 1 MG TAB PO SCH (09:16)
[2023-02-15] MEDS: LORazepam 0.5 MG TAB PO PRN ×2 (14:37→18:26)
[2023-02-15 15:48] LABS: Anti Nuclear Antibody Screen POSITIVE (NEGATIVE)
[2023-02-15] MEDS ORDERED: clonazePAM 1 MG TAB PO SCH (22:00)
[2023-02-16] MEDS: POTASSIUM CHLORIDE 20 MEQ/15 ML UDC PO SCH ×2 (08:34→20:52)
[2023-02-16] MEDS: SERTRALINE HCL 50 MG TABLET PO SCH (08:34)
--- NOTE | 2023-02-16 08:37 | Psychiatric Progress Note ---
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 She is recently back on 2/3 the previous dose and reporting feeling overwhelmed. Much of this appears to represent anxiety, including fears of what she "might do". It seems likely that resuming the previously effective sertraline dose will eventually help. Right now the anxiety is sufficiently severe as to represent a significant risk factor for suicide. 02/16/2023: Had an episode of panic yesterday, obsessing over "never getting better" and that she might "always be a burden". Has used more lorazepam today with generally worse anxiety and more obsessive worrying about never getting better. Although she had possible sedation on higher clonazepam dose, anxiety is worse today. Discussed reverting to 1 mg BID. While 150 mg sertraline was effective in the past and likely to be effective now, pt is obsessing about "never getting better". A dose increase above an effective dose won't work better or faster, but could help ensure dose adequacy and perhaps help her feel more reassured that it will eventually work. 02/15/2023: Pt says that she'd been very worried that her being her on Thanksgiving would burden her parents with concern and worry. They visited yesterday and she was very relieved that, while they're clearly concerned about her welfare, they think she's "where [she] should be". Reports feeling more sedated today following increase of clonazepam to 1 mg BID. Discussed dividing daytime dose of clonazepam or reducing it back to 0.5 mg and continuing 1 mg at HS. Pt notes that she felt noticeably less anxious when she woke up this morning than on previous days here and would like to continue the 1 mg HS dose. 02/14/2023: Pt says she doesn't think she feels much better than at admission. She has been sleeping more and presents as more engaged and interactive. However, yesterday evening she was distressed by ruminative/obsessive thoughts and feeling overwhelmed by her inability to control them. Spoke about cognitive- behavioral approaches including distraction, thought-stopping. In light of how anxious she is about the obsessions, discussed increasing clonazepam. While this certainly would have no benefit for obsessive thoughts themselves, the secondary anxiety spawned by them should be responsive to anxiolytic medication. Pt has noted no daytime sedation or any other adverse effect from the current dose. Potassium level was 3.6 mmol/L on current replenishment regimen. 02/13/2023: Reports a bit of improvement in mood overall. Woke early feeling very anxious, got PRN lorazepam. Discussed that anxiety seems to be the primary factor in how overwhelmed she feels. Will continue clonazepam trial for this. Discussed her IIH at some length, particularly in terms of relapse risk off acetazolamide. She's not very concerned and would like to remain off that med. Has tolerated increase of sertraline to 150 mg, on which dose she did well in the past. She has noted no adverse effect attributable to any of her medication (including lorazepam, which she usually dislikes). 02/12/2023: Hypokalemia seems very likely a result of recently-stopped acetazolamide but for now needs to be replenished. It's unclear how the pseudotumor cerebri might do without treatment but pt prefers not to resume acetazolamide. (1) Major depressive disorder, recurrent, severe without psychotic features: (2) Obsessive compulsive disorder: (3) Suicidal ideation: (4) Idiopathic intracranial hypertension: (5) Vitamin D deficiency: (6) Hypokalemia: Plan 02/16/2023: * increase sertraline to 200 mg daily - increased 02/12/2023 from prior to admision dose of 100 mg (but previous effective dose had been 150 mg) * increase clonazepam back to 1 mg BID - decreased 02/15/2023 to 0.5 mg AM & 1 mg HS, increased 02/14/2023 to 1 mg BID, started 02/12/2023 at 0.5 mg BID * continue ergocalciferol 50,000 IU twice weekly - started 02/12/2023 * continue KCl 20 mEq BID 02/15/2023: * continue sertraline 150 mg daily - increased 02/12/2023 from prior to admision dose of 100 mg (but previous effective dose had been 150 mg) * reduce clonazepam to 0.5 mg QAM & 1 mg QHS - increased 02/14/2023 to 1 mg BID, started 02/12/2023 at 0.5 mg BID * continue ergocalciferol 50,000 IU twice weekly - started 02/12/2023 * continue KCl 20 mEq BID 02/14/2023: * continue sertraline 150 mg daily - increased 02/12/2023 from prior to admision dose of 100 mg (but previous effective dose had been 150 mg) * increase clonazepam to 1 mg BID - started 02/12/2023 at 0.5 mg BID * continue ergocalciferol 50,000 IU twice weekly - started 02/12/2023 * continue KCl 20 mEq BID 02/13/2023: * continue sertraline 150 mg daily - increased 02/12/2023 from prior to admision dose of 100 mg (but previous effective dose had been 150 mg) * continue clonazepam 0.5 mg BID - started 02/12/2023 * continue ergocalciferol 50,000 IU twice weekly - started 02/12/2023 * continue KCl 20 mEq BID * basic metabolic panel, largely to recheck potassium 02/12/2023: The patient was admitted to the [facility] ([facility] unit) on q15 minute checks (behavioral with suicide precautions) for safety.The patient will participate in group, recreational, and milieu therapies and will be offered additional individual and family sessions as clinically appropriate. * increase sertraline to 150 mg daily * start ergocalciferol 50,000 IU twice weekly * start KCl 20 mEq BID Inventory Assets Strengths: supportive relationships, voluntary, good insight, intelligent employed, Needs: safety and stabilization, medication adjustment, additional coping skills, increased outpatient services Suicide Risk Level Suicide Risk Level: High-Moderate (q15 min suicide checks) (reports feeling safe now but continues to have suicidal thoughts) Risk Factors Assessment Male: No : Yes Do You Have Access To A Gun?: No Health Problems: Yes Mental Health Diagnoses: Yes Substance Use Disorders: Yes Previous Attempt: No Previous Psychiatric Hospitalization: Yes Hopelessness: Yes Protective Factors Assessment Responsible for Young Children: No 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 Chief Complaint "Do you think I'll ever get better?". Review of Systems Sleep Information Total Hours of Sleep: 7 Meal Information Percent Meal Consumed - Breakfast: 50 Percent Meal Consumed - Lunch: 50 Percent Meal Consumed - Dinner: 50 Subjective Subjective The patient was seen and assessed and interval progress reviewed in a multidisciplinary team meeting with nursing and social work. For details, see the "Impression" section. Overall I spent a total of 41 minutes for this inpatient follow-up including review of chart records, direct evaluation of the patient [id number], counseling the patient, reconciling and ordering medication, medication education with the patient, risk assessment, discussion during interdisciplinary treatment rounds, and documentation in the electronic health record. Physical Exam Psychiatric Orientation: alert, oriented to person, oriented to place, oriented to time and cooperative Apperance: appropriately dressed, appropriately groomed and appeared stated age Eye Contact: good eye contact Motor Behavior: + psychomotor retardation Speech: normal rate/rhythm/volume of speech Affect: + depressed affect, + anxious affect and mood congruent with affect Mood: + depressed mood and + anxious mood Thought Process: linear/logical thought process and clear/coherent thought process Thought Content: reality based without delusions Suicidal Thoughts: denies suicidal plan and denies suicidal intent; + reports suicidal thoughts Homicidal Thoughts: denies homicidal thoughts Hallucinations: no auditory hallucinations and no visual hallucinations Cognition: recent memory grossly intact, remote memory grossly intact, attention grossly intact and language grossly intact Estimated Intelligence: consistent with education level Insight: + fair insight Judgment: + fair judgement Vital Signs (Past 24 Hours) Last Vital Signs Temp 36.6 C 02/16/23 06:48 Pulse 85 02/16/23 06:48 Resp 18 02/16/23 06:48 BP 117/76 02/16/23 06:48 Pulse Ox 98 02/16/23 06:48 O2 Del Method Room Air 02/16/23 06:48 Results & Data ([facility]) Laboratory Results Laboratory Results - last 24 hr 02/12/23 15:11 RYAN Screen POSITIVE A Current Inpatient Medications Current Inpatient Medications: Current Inpatient Medications Acetaminophen (Acetaminophen 325 Mg Tab) 650 mg PO Q4H PRN PRN Reason: Headache or Minor Fever Stop: 03/13/23 19:20 Al Hydrox/Mg Hydrox/Simethicone (Aluminum/Magnesium Susp 30 Ml Udc) 30 ml PO Q4H PRN PRN Reason: GI Upset Stop: 03/13/23 19:20 Bismuth Subsalicylate (Bismuth Subsalicylate Liqd 236 Ml) 15 ml PO PRN PRN PRN Reason: Loose Stool Stop: 03/13/23 19:20 Clonazepam (Clonazepam 1 Mg Tab) 1 mg PO HS DORIS Stop: 03/17/23 21:59 Last Admin: 02/15/23 21:17 Dose: 1 mg Clonazepam (Clonazepam 0.5 Mg Tab) 0.5 mg PO QAM DORIS Stop: 03/18/23 08:59 Ergocalciferol (Ergocalciferol 50,000 Units 1250 Mcg Cap) 50,000 units PO SuWe@0900 DORIS Stop: 03/15/23 16:29 Last Admin: 02/13/23 17:46 Dose: 50,000 units Hydroxyzine HCl (Hydroxyzine Hcl 25 Mg Tab) 50 mg PO HSZ PRN PRN Reason: Insomnia Stop: 03/13/23 19:20 Hydroxyzine HCl (Hydroxyzine Hcl 25 Mg Tab) 25 mg PO Q4H PRN PRN Reason: Anxiety Stop: 03/13/23 19:20 Lorazepam (Lorazepam 0.5 Mg Tab) 0.5 mg PO BID PRN PRN Reason: Anxiety Stop: 03/13/23 21:02 Last Admin: 02/15/23 18:26 Dose: 0.5 mg Magnesium Hydroxide (Magnesium Hydroxide Susp 30 Ml Udc) 30 ml PO DAILY PRN PRN Reason: Constipation Stop: 03/13/23 19:20 Potassium Chloride (Potassium Chloride 20 Meq/15 Ml Udc) 20 meq PO BID DORIS Stop: 03/15/23 20:59 Last Admin: 02/15/23 21:17 Dose: 20 meq Sertraline HCl (Sertraline Hcl 50 Mg Tablet) 150 mg PO QAM DORIS Stop: 03/15/23 08:59 Last Admin: 02/15/23 09:16 Dose: 150 mg Sodium Chloride (Sodium Chloride 0.65% Na Soln 45 Ml ([place])) 1 - 2 sprays NA PRN PRN PRN Reason: Nasal Dryness/Congestion Stop: 03/13/23 19:20 Mental Health & Subst Abuse Tx Psychiatrist Name of Psychiatrist: Sammy Solis - Alexi Whitt PA-C Psychiatrist's Date Of Appointment With Psychiatric Provider: 03/13/23 Time of Appointment with Psychiatrist: 9:30 AM Psychiatric Appointment Comment: [address] [facility], [place] [address] Therapist Name of Therapist: Cassie Felipe - Kortney Roche LPC Therapist's Date of Therapist Appointment: 02/18/23 Time of Therapist Appointment: 12:00 PM Therapy Appointment Comment: [address], [place] [address] Post Discharge Appointments Primary Care Physician Name Of Family Doctor/PCP: [facility] - Dr. Sandhu Primary [facility] Date of Future Appointment with PCP: 02/22/23 Time of Appointment with PCP: 10:45 AM Provider Appointment Comment: [address], [address], [place] [address] (2) Obsessive compulsive disorder Obsessive-compulsive disorder type: mixed obsessional thoughts and acts Qualified Code(s): F42.2 - Mixed obsessional thoughts and acts
[2023-02-16] MEDS ORDERED: clonazePAM 0.5 MG TAB PO SCH (09:00)
[2023-02-16] MEDS: LORazepam 0.5 MG TAB PO PRN (13:11)
[2023-02-16] MEDS ORDERED: LORazepam 1 MG TAB PO STA (16:23)
[2023-02-16] MEDS ORDERED: LORazepam 1 MG TAB ONE (16:27)
[2023-02-16] MEDS: clonazePAM 1 MG TAB PO SCH (20:52)
[2023-02-17] MEDS: ERGOCALCIFEROL 50,000 UNITS 1250 MCG CAP PO SCH (08:14)
[2023-02-17] MEDS: SERTRALINE HCL 100 MG TABLET PO SCH (08:15)
[2023-02-17] MEDS: clonazePAM 1 MG TAB PO SCH ×2 (08:15→20:06)
[2023-02-17] MEDS: POTASSIUM CHLORIDE 20 MEQ/15 ML UDC PO SCH ×2 (08:16→20:06)
--- NOTE | 2023-02-17 14:37 | Psychiatric Progress Note ---
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 She is recently back on 2/3 the previous dose and reporting feeling overwhelmed. Much of this appears to represent anxiety, including fears of what she "might do". It seems likely that resuming the previously effective sertraline dose will eventually help. Right now the anxiety is sufficiently severe as to represent a significant risk factor for suicide. 02/17/2023: Presents as less overwhelmed and anxious today, with no evidence at all of sedation following resumption of increased AM clonazepam. She continues to have intrusive, ruminative thoughts about whether she deserves to feel better or even to live, that she might be burden on her parents or the world at large but she's more able to distract herself with activities or interactions with others. Has not required any PRN lorazepam last night or thus far today, but is somewhat preoccupied with ensuring it's still available (my sense is feeling as if she needs a "safety net"). Has similarly tolerated increase of sertraline to 200 mg with no adverse effect. Sleeping fairly well. Insists she's eating more than has been documented. 02/16/2023: Had an episode of panic yesterday, obsessing over "never getting better" and that she might "always be a burden". Has used more lorazepam today with generally worse anxiety and more obsessive worrying about never getting better. Although she had possible sedation on higher clonazepam dose, anxiety is worse today. Discussed reverting to 1 mg BID. While 150 mg sertraline was effective in the past and likely to be effective now, pt is obsessing about "never getting better". A dose increase above an effective dose won't work better or faster, but could help ensure dose adequacy and perhaps help her feel more reassured that it will eventually work. 02/15/2023: Pt says that she'd been very worried that her being her on Thanksgiving would burden her parents with concern and worry. They visited yesterday and she was very relieved that, while they're clearly concerned about her welfare, they think she's "where [she] should be". Reports feeling more sedated today following increase of clonazepam to 1 mg BID. Discussed dividing daytime dose of clonazepam or reducing it back to 0.5 mg and continuing 1 mg at HS. Pt notes that she felt noticeably less anxious when she woke up this morning than on previous days here and would like to continue the 1 mg HS dose. 02/14/2023: Pt says she doesn't think she feels much better than at admission. She has been sleeping more and presents as more engaged and interactive. However, yesterday evening she was distressed by ruminative/obsessive thoughts and feeling overwhelmed by her inability to control them. Spoke about cognitive- behavioral approaches including distraction, thought-stopping. In light of how anxious she is about the obsessions, discussed increasing clonazepam. While this certainly would have no benefit for obsessive thoughts themselves, the secondary anxiety spawned by them should be responsive to anxiolytic medication. Pt has noted no daytime sedation or any other adverse effect from the current dose. Potassium level was 3.6 mmol/L on current replenishment regimen. 02/13/2023: Reports a bit of improvement in mood overall. Woke early feeling very anxious, got PRN lorazepam. Discussed that anxiety seems to be the primary factor in how overwhelmed she feels. Will continue clonazepam trial for this. Discussed her IIH at some length, particularly in terms of relapse risk off acetazolamide. She's not very concerned and would like to remain off that med. Has tolerated increase of sertraline to 150 mg, on which dose she did well in the past. She has noted no adverse effect attributable to any of her medication (including lorazepam, which she usually dislikes). 02/12/2023: Hypokalemia seems very likely a result of recently-stopped acetazolamide but for now needs to be replenished. It's unclear how the pseudotumor cerebri might do without treatment but pt prefers not to resume acetazolamide. (1) Major depressive disorder, recurrent, severe without psychotic features: (2) Obsessive compulsive disorder: (3) Suicidal ideation: (4) Idiopathic intracranial hypertension: (5) Vitamin D deficiency: (6) Hypokalemia: Plan 02/17/2023: * continue sertraline 200 mg daily - increased 02/16/2023 from 150 mg, increased 02/12/2023 from prior to admission dose of 100 mg (but previous effective dose had been 150 mg) * continue clonazepam 1 mg BID - increased 02/16/2023 back to 1 mg BID, decreased 02/15/2023 to 0.5 mg AM & 1 mg HS, increased 02/14/2023 to 1 mg BID, started 02/12/2023 at 0.5 mg BID * continue ergocalciferol 50,000 IU twice weekly - started 02/12/2023 * continue KCl 20 mEq BID 02/16/2023: * increase sertraline to 200 mg daily - increased 02/12/2023 from prior to admision dose of 100 mg (but previous effective dose had been 150 mg) * increase clonazepam back to 1 mg BID - decreased 02/15/2023 to 0.5 mg AM & 1 mg HS, increased 02/14/2023 to 1 mg BID, started 02/12/2023 at 0.5 mg BID * continue ergocalciferol 50,000 IU twice weekly - started 02/12/2023 * continue KCl 20 mEq BID 02/15/2023: * continue sertraline 150 mg daily - increased 02/12/2023 from prior to admision dose of 100 mg (but previous effective dose had been 150 mg) * reduce clonazepam to 0.5 mg QAM & 1 mg QHS - increased 02/14/2023 to 1 mg BID, started 02/12/2023 at 0.5 mg BID * continue ergocalciferol 50,000 IU twice weekly - started 02/12/2023 * continue KCl 20 mEq BID 02/14/2023: * continue sertraline 150 mg daily - increased 02/12/2023 from prior to admision dose of 100 mg (but previous effective dose had been 150 mg) * increase clonazepam to 1 mg BID - started 02/12/2023 at 0.5 mg BID * continue ergocalciferol 50,000 IU twice weekly - started 02/12/2023 * continue KCl 20 mEq BID 02/13/2023: * continue sertraline 150 mg daily - increased 02/12/2023 from prior to admision dose of 100 mg (but previous effective dose had been 150 mg) * continue clonazepam 0.5 mg BID - started 02/12/2023 * continue ergocalciferol 50,000 IU twice weekly - started 02/12/2023 * continue KCl 20 mEq BID * basic metabolic panel, largely to recheck potassium 02/12/2023: The patient was admitted to the [facility] ([facility]) on q15 minute checks (behavioral with suicide precautions) for safety.The patient will participate in group, recreational, and milieu therapies and will be offered additional individual and family sessions as clinically appropriate. * increase sertraline to 150 mg daily * start ergocalciferol 50,000 IU twice weekly * start KCl 20 mEq BID Inventory Assets Strengths: supportive relationships, voluntary, good insight, intelligent employed, Needs: safety and stabilization, medication adjustment, additional coping skills, increased outpatient services Suicide Risk Level Suicide Risk Level: High-Moderate (q15 min suicide checks) (reports feeling safe now but continues to have suicidal thoughts) Risk Factors Assessment Male: No : Yes Do You Have Access To A Gun?: No Health Problems: Yes Mental Health Diagnoses: Yes Substance Use Disorders: Yes Previous Attempt: No Previous Psychiatric Hospitalization: Yes Hopelessness: Yes Protective Factors Assessment Responsible for Young Children: No 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 Chief Complaint "I wonder if I deserve to get better". Review of Systems Sleep Information Total Hours of Sleep: 6.25 Meal Information Percent Meal Consumed - Breakfast: 50 Percent Meal Consumed - Lunch: 25 Percent Meal Consumed - Dinner: 50 Subjective Subjective The patient was seen and assessed and interval progress reviewed in a multidisciplinary team meeting with nursing and social work. For details, see the "Impression" section. Overall I spent a total of 46 minutes for this inpatient follow-up including review of chart records, review of test results, direct evaluation of the patient [id number], counseling the patient, medication education with the patient, risk assessment, discussion during interdisciplinary treatment rounds, and documentation in the electronic health record. Physical Exam Psychiatric Orientation: alert, oriented to person, oriented to place, oriented to time and cooperative Apperance: appropriately dressed, appropriately groomed and appeared stated age Eye Contact: good eye contact Motor Behavior: + psychomotor retardation Speech: normal rate/rhythm/volume of speech Affect: + depressed affect, + anxious affect and mood congruent with affect Mood: + depressed mood and + anxious mood Thought Process: linear/logical thought process and clear/coherent thought process Thought Content: reality based without delusions and + hopelessness Suicidal Thoughts: denies suicidal plan and denies suicidal intent; + reports suicidal thoughts Homicidal Thoughts: denies homicidal thoughts Hallucinations: no auditory hallucinations and no visual hallucinations Cognition: recent memory grossly intact, remote memory grossly intact, attention grossly intact and language grossly intact Estimated Intelligence: consistent with education level Insight: + fair insight Judgment: + fair judgement Vital Signs (Past 24 Hours) Last Vital Signs Temp 36.5 C 02/17/23 06:49 Pulse 100 H 02/17/23 06:49 Resp 18 02/17/23 06:49 BP 113/81 02/17/23 06:49 Pulse Ox 98 02/17/23 06:49 O2 Del Method Room Air 02/17/23 06:49 Results & Data ([facility]) Current Inpatient Medications Current Inpatient Medications: Current Inpatient Medications Acetaminophen (Acetaminophen 325 Mg Tab) 650 mg PO Q4H PRN PRN Reason: Headache or Minor Fever Stop: 03/13/23 19:20 Al Hydrox/Mg Hydrox/Simethicone (Aluminum/Magnesium Susp 30 Ml Udc) 30 ml PO Q4H PRN PRN Reason: GI Upset Stop: 03/13/23 19:20 Bismuth Subsalicylate (Bismuth Subsalicylate Liqd 236 Ml) 15 ml PO PRN PRN PRN Reason: Loose Stool Stop: 03/13/23 19:20 Clonazepam (Clonazepam 1 Mg Tab) 1 mg PO BID DORIS Stop: 03/18/23 20:59 Last Admin: 02/17/23 08:15 Dose: 1 mg Ergocalciferol (Ergocalciferol 50,000 Units 1250 Mcg Cap) 50,000 units PO SuWe@0900 DORIS Stop: 03/15/23 16:29 Last Admin: 02/17/23 08:14 Dose: 50,000 units Hydroxyzine HCl (Hydroxyzine Hcl 25 Mg Tab) 50 mg PO HSZ PRN PRN Reason: Insomnia Stop: 03/13/23 19:20 Hydroxyzine HCl (Hydroxyzine Hcl 25 Mg Tab) 25 mg PO Q4H PRN PRN Reason: Anxiety Stop: 03/13/23 19:20 Lorazepam (Lorazepam 0.5 Mg Tab) 0.5 mg PO BID PRN PRN Reason: Anxiety Stop: 03/13/23 21:02 Last Admin: 02/16/23 13:11 Dose: 0.5 mg Magnesium Hydroxide (Magnesium Hydroxide Susp 30 Ml Udc) 30 ml PO DAILY PRN PRN Reason: Constipation Stop: 03/13/23 19:20 Potassium Chloride (Potassium Chloride 20 Meq/15 Ml Udc) 20 meq PO BID DORIS Stop: 03/15/23 20:59 Last Admin: 02/17/23 08:16 Dose: 20 meq Sertraline HCl (Sertraline Hcl 100 Mg Tablet) 200 mg PO QAM DORIS Stop: 03/19/23 08:59 Last Admin: 02/17/23 08:15 Dose: 200 mg Sodium Chloride (Sodium Chloride 0.65% Na Soln 45 Ml (Fisher)) 1 - 2 sprays NA PRN PRN PRN Reason: Nasal Dryness/Congestion Stop: 03/13/23 19:20 Mental Health & Subst Abuse Tx Psychiatrist Name of Psychiatrist: Sammy Whitt PA-C Psychiatrist's Date Of Appointment With Psychiatric Provider: 03/13/23 Time of Appointment with Psychiatrist: 9:30 AM Psychiatric Appointment Comment: [address] [place] [address] Therapist Name of Therapist: Cassie Felipe - Kortney Roche LPC Therapist's Date of Therapist Appointment: 02/18/23 Time of Therapist Appointment: 12:00 PM Therapy App[facility]ment Comment[address] [facility] [address] Post Discharge Appointments Primary Care Physician Name Of Family Doctor/PCP: [facility] - Dr. Sandhu [facility] Date of Future Appointment with PCP: 02/22/23 Time of Appointment with PCP: 10:45 AM Provider Appointment Comment: [address], [address], [place] [address] (2) Obsessive compulsive disorder Obsessive-compulsive disorder type: mixed obsessional thoughts and acts Qualified Code(s): F42.2 - Mixed obsessional thoughts and acts
[2023-02-17] MEDS: LORazepam 0.5 MG TAB PO PRN (16:37)
[2023-02-18] MEDS: LORazepam 0.5 MG TAB PO PRN ×3 (08:09→19:36)
[2023-02-18 09:06] LABS: ANA Pattern Nuclear, Homogeneous
[2023-02-18] MEDS: POTASSIUM CHLORIDE 20 MEQ/15 ML UDC PO SCH ×2 (09:19→21:18)
[2023-02-18] MEDS: clonazePAM 1 MG TAB PO SCH ×2 (09:19→21:19)
[2023-02-18] MEDS: SERTRALINE HCL 100 MG TABLET PO SCH (09:19)
--- NOTE | 2023-02-18 17:42 | Psychiatric Progress Note ---
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 She is recently back on 2/3 the previous dose and reporting feeling overwhelmed. Much of this appears to represent anxiety, including fears of what she "might do". It seems likely that resuming the previously effective sertraline dose will eventually help. Right now the anxiety is sufficiently severe as to represent a significant risk factor for suicide. 02/18/2023: Pt very demoralized by lack of rapid improvement, says she feels as if she's "never going to get better". Says that until today she was primarily having obsessive doubts about whether she deserved to live but that today she's been having thoughts that life wouldn't be worth living if it continued like this and that it would be worth killing herself to avoid that. She does deny any current suicidal plan or intent. She wants do "get more aggressive with medication". Reviewed that increasing SSRI won't make it work faster and that we just increased above what was shown to work for her in the past in order to ensure adequacy of dose. Reviewed that it appears she may be using maximal dose of clonazepam that doesn't sedate here; it's at least somewhat effective for her anxiety. Devoted considerable time to exploring possible augmentation with atypical antipsychotic. Olanzapine has some published evidence of potential efficacy for OCD, and among antipsychotics (all of which can precipitate or exacerbate OC symptoms) appears to have the lowest risk of worsening her obsessive-compulsive symptoms. It may have higher risk of metabolic side effects than some other atypical antipsychotics. Aripiprazole may have among the lowest risks of metabolic side effects but less evidence of benefit for OCD, though it seems to have relatively low risk of exacerbating it. Pt notes (for the first time) that she took aripiprazole to augment sertraline in the past and stopped because she gained weight. Despite this, she would like another trial. Risks and benefits of, and alternatives to, the use of aripiprazole (Abilify) for mood were reviewed. This discussion included but was not limited to issues known potentially to be associated with use of such medication, especially at high doses or with longer use, including sedation, weight gain, problems with glucose metabolism including Type II diabetes, problems with lipid metabolism, cardiac conduction problems, or rarely involuntary movements, parkinsonian symptoms, or even acute dystonia or life-threatening Neuroleptic Malignant Syndrome. Discussed the need for periodic monitoring of fasting glucose or Hemoglobin A1c and fasting lipid panel, which were ordered for baseline monitoring. The patient agreed to start a trial of aripiprazole. 02/17/2023: Presents as less overwhelmed and anxious today, with no evidence at all of sedation following resumption of increased AM clonazepam. She continues to have intrusive, ruminative thoughts about whether she deserves to feel better or even to live, that she might be burden on her parents or the world at large but she's more able to distract herself with activities or interactions with others. Has not required any PRN lorazepam last night or thus far today, but is somewhat preoccupied with ensuring it's still available (my sense is feeling as if she needs a "safety net"). Has similarly tolerated increase of sertraline to 200 mg with no adverse effect. Sleeping fairly well. Insists she's eating more than has been documented. 02/16/2023: Had an episode of panic yesterday, obsessing over "never getting better" and that she might "always be a burden". Has used more lorazepam today with generally worse anxiety and more obsessive worrying about never getting better. Although she had possible sedation on higher clonazepam dose, anxiety is worse today. Discussed reverting to 1 mg BID. While 150 mg sertraline was effective in the past and likely to be effective now, pt is obsessing about "never getting better". A dose increase above an effective dose won't work better or faster, but could help ensure dose adequacy and perhaps help her feel more reassured that it will eventually work. 02/15/2023: Pt says that she'd been very worried that her being her on Thanksgiving would burden her parents with concern and worry. They visited yesterday and she was very relieved that, while they're clearly concerned about her welfare, they think she's "where [she] should be". Reports feeling more sedated today following increase of clonazepam to 1 mg BID. Discussed dividing daytime dose of clonazepam or reducing it back to 0.5 mg and continuing 1 mg at HS. Pt notes that she felt noticeably less anxious when she woke up this morning than on previous days here and would like to continue the 1 mg HS dose. 02/14/2023: Pt says she doesn't think she feels much better than at admission. She has been sleeping more and presents as more engaged and interactive. However, yesterday evening she was distressed by ruminative/obsessive thoughts and feeling overwhelmed by her inability to control them. Spoke about cognitive- behavioral approaches including distraction, thought-stopping. In light of how anxious she is about the obsessions, discussed increasing clonazepam. While this certainly would have no benefit for obsessive thoughts themselves, the secondary anxiety spawned by them should be responsive to anxiolytic medication. Pt has noted no daytime sedation or any other adverse effect from the current dose. Potassium level was 3.6 mmol/L on current replenishment regimen. 02/13/2023: Reports a bit of improvement in mood overall. Woke early feeling very anxious, got PRN lorazepam. Discussed that anxiety seems to be the primary factor in how overwhelmed she feels. Will continue clonazepam trial for this. Discussed her IIH at some length, particularly in terms of relapse risk off acetazolamide. She's not very concerned and would like to remain off that med. Has tolerated increase of sertraline to 150 mg, on which dose she did well in the past. She has noted no adverse effect attributable to any of her medication (including lorazepam, which she usually dislikes). 02/12/2023: Hypokalemia seems very likely a result of recently-stopped acetazolamide but for now needs to be replenished. It's unclear how the pseudotumor cerebri might do without treatment but pt prefers not to resume acetazolamide. (1) Major depressive disorder, recurrent, severe without psychotic features: (2) Obsessive compulsive disorder: (3) Suicidal ideation: (4) Idiopathic intracranial hypertension: (5) Vitamin D deficiency: (6) Hypokalemia: Plan 02/18/2023: * start aripiprazole 5 mg QAM * continue sertraline 200 mg daily - increased 02/16/2023 from 150 mg, increased 02/12/2023 from prior to admission dose of 100 mg (but previous effective dose had been 150 mg) * continue clonazepam 1 mg BID - increased 02/16/2023 back to 1 mg BID, decreased 02/15/2023 to 0.5 mg AM & 1 mg HS, increased 02/14/2023 to 1 mg BID, started 02/12/2023 at 0.5 mg BID * continue ergocalciferol 50,000 IU twice weekly - started 02/12/2023 * continue KCl 20 mEq BID * HgbA1c and fasting lipid panel ordered for AM 02/17/2023: * continue sertraline 200 mg daily - increased 02/16/2023 from 150 mg, increased 02/12/2023 from prior to admission dose of 100 mg (but previous effective dose had been 150 mg) * continue clonazepam 1 mg BID - increased 02/16/2023 back to 1 mg BID, decreased 02/15/2023 to 0.5 mg AM & 1 mg HS, increased 02/14/2023 to 1 mg BID, started 02/12/2023 at 0.5 mg BID * continue ergocalciferol 50,000 IU twice weekly - started 02/12/2023 * continue KCl 20 mEq BID 02/16/2023: * increase sertraline to 200 mg daily - increased 02/12/2023 from prior to admision dose of 100 mg (but previous effective dose had been 150 mg) * increase clonazepam back to 1 mg BID - decreased 02/15/2023 to 0.5 mg AM & 1 mg HS, increased 02/14/2023 to 1 mg BID, started 02/12/2023 at 0.5 mg BID * continue ergocalciferol 50,000 IU twice weekly - started 02/12/2023 * continue KCl 20 mEq BID 02/15/2023: * continue sertraline 150 mg daily - increased 02/12/2023 from prior to admision dose of 100 mg (but previous effective dose had been 150 mg) * reduce clonazepam to 0.5 mg QAM & 1 mg QHS - increased 02/14/2023 to 1 mg BID, started 02/12/2023 at 0.5 mg BID * continue ergocalciferol 50,000 IU twice weekly - started 02/12/2023 * continue KCl 20 mEq BID 02/14/2023: * continue sertraline 150 mg daily - increased 02/12/2023 from prior to admision dose of 100 mg (but previous effective dose had been 150 mg) * increase clonazepam to 1 mg BID - started 02/12/2023 at 0.5 mg BID * continue ergocalciferol 50,000 IU twice weekly - started 02/12/2023 * continue KCl 20 mEq BID 02/13/2023: * continue sertraline 150 mg daily - increased 02/12/2023 from prior to admision dose of 100 mg (but previous effective dose had been 150 mg) * continue clonazepam 0.5 mg BID - started 02/12/2023 * continue ergocalciferol 50,000 IU twice weekly - started 02/12/2023 * continue KCl 20 mEq BID * basic metabolic panel, largely to recheck potassium 02/12/2023: The patient was admitted to the [facility] ([facility]) on q15 minute checks (behavioral with suicide precautions) for safety.The patient will participate in group, recreational, and milieu therapies and will be offered additional individual and family sessions as clinically appropriate. * increase sertraline to 150 mg daily * start ergocalciferol 50,000 IU twice weekly * start KCl 20 mEq BID Inventory Assets Strengths: supportive relationships, voluntary, good insight, intelligent employed, Needs: safety and stabilization, medication adjustment, additional coping skills, increased outpatient services Suicide Risk Level Suicide Risk Level: High-Moderate (q15 min suicide checks) (reports feeling safe now but continues to have suicidal thoughts) Risk Factors Assessment Male: No : Yes Do You Have Access To A Gun?: No Health Problems: Yes Mental Health Diagnoses: Yes Substance Use Disorders: Yes Previous Attempt: No Previous Psychiatric Hospitalization: Yes Hopelessness: Yes Protective Factors Assessment Responsible for Young Children: No 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 Chief Complaint "IT doesn't feel like I'm getting anywhere". Review of Systems Sleep Information Total Hours of Sleep: 7.75 Meal Information Percent Meal Consumed - Breakfast: 50 Percent Meal Consumed - Lunch: 25 Percent Meal Consumed - Dinner: 75 Subjective Subjective The patient was seen and assessed and interval progress reviewed in a multidisciplinary team meeting with the treatment team. For details, see the "Impression" section. Overall I spent a total of 55 minutes for this inpatient follow-up including review of chart records, review of test results, direct evaluation of the patient [id number], counseling the patient, reconciling and ordering medication, medication education with the patient, risk assessment, discussion during interdisciplinary treatment rounds, and documentation in the electronic health record. Physical Exam Psychiatric Orientation: alert, oriented to person, oriented to place, oriented to time and cooperative Apperance: appropriately dressed, appropriately groomed and appeared stated age Eye Contact: good eye contact Motor Behavior: + psychomotor retardation Speech: normal rate/rhythm/volume of speech Affect: + depressed affect, + anxious affect and mood congruent with affect Mood: + depressed mood and + anxious mood Thought Process: linear/logical thought process and clear/coherent thought process Thought Content: reality based without delusions and + hopelessness Suicidal Thoughts: denies suicidal plan and denies suicidal intent; + reports suicidal thoughts Homicidal Thoughts: denies homicidal thoughts Hallucinations: no auditory hallucinations and no visual hallucinations Cognition: recent memory grossly intact, remote memory grossly intact, attention grossly intact and language grossly intact Estimated Intelligence: consistent with education level Insight: + fair insight Judgment: + fair judgement Vital Signs (Past 24 Hours) Last Vital Signs Temp 36.5 C 02/18/23 06:40 Pulse 114 H 02/18/23 06:40 Resp 16 02/18/23 06:40 BP 116/79 02/18/23 06:40 Pulse Ox 98 02/17/23 06:49 O2 Del Method Room Air 02/17/23 06:49 Results & Data ([facility]) Laboratory Results Laboratory Results - last 24 hr 02/12/23 15:11 YRAN Screen POSITIVE A RYAN Titer 1:80 H RYAN Pattern Nuclear, Homogeneous A Current Inpatient Medications Current Inpatient Medications: Current Inpatient Medications Acetaminophen (Acetaminophen 325 Mg Tab) 650 mg PO Q4H PRN PRN Reason: Headache or Minor Fever Stop: 03/13/23 19:20 Al Hydrox/Mg Hydrox/Simethicone (Aluminum/Magnesium Susp 30 Ml Udc) 30 ml PO Q4H PRN PRN Reason: GI Upset Stop: 03/13/23 19:20 Aripiprazole (Aripiprazole 5 Mg Tab) 5 mg PO QAM DORIS Stop: 03/20/23 17:14 Bismuth Subsalicylate (Bismuth Subsalicylate Liqd 236 Ml) 15 ml PO PRN PRN PRN Reason: Loose Stool Stop: 03/13/23 19:20 Clonazepam (Clonazepam 1 Mg Tab) 1 mg PO BID DORIS Stop: 03/18/23 20:59 Last Admin: 02/18/23 09:19 Dose: 1 mg Ergocalciferol (Ergocalciferol 50,000 Units 1250 Mcg Cap) 50,000 units PO SuWe@0900 DORIS Stop: 03/15/23 16:29 Last Admin: 02/17/23 08:14 Dose: 50,000 units Hydroxyzine HCl (Hydroxyzine Hcl 25 Mg Tab) 50 mg PO HSZ PRN PRN Reason: Insomnia Stop: 03/13/23 19:20 Hydroxyzine HCl (Hydroxyzine Hcl 25 Mg Tab) 25 mg PO Q4H PRN PRN Reason: Anxiety Stop: 03/13/23 19:20 Lorazepam (Lorazepam 0.5 Mg Tab) 0.5 mg PO BID PRN PRN Reason: Anxiety Stop: 03/13/23 21:02 Last Admin: 02/18/23 14:06 Dose: 0.5 mg Magnesium Hydroxide (Magnesium Hydroxide Susp 30 Ml Udc) 30 ml PO DAILY PRN PRN Reason: Constipation Stop: 03/13/23 19:20 Potassium Chloride (Potassium Chloride 20 Meq/15 Ml Udc) 20 meq PO BID DORIS Stop: 03/15/23 20:59 Last Admin: 02/18/23 09:19 Dose: 20 meq Sertraline HCl (Sertraline Hcl 100 Mg Tablet) 200 mg PO QAM DORIS Stop: 03/19/23 08:59 Last Admin: 02/18/23 09:19 Dose: 200 mg Sodium Chloride (Sodium Chloride 0.65% Na Soln 45 Ml ([place])) 1 - 2 sprays NA PRN PRN PRN Reason: Nasal Dryness/Congestion Stop: 03/13/23 19:20 Mental Health & Subst Abuse Tx Psychiatrist Name of Psychiatrist: Sammy Whitt PA-C Psychiatrist's Date Of Appointment With Psychiatric Provider: 03/13/23 Time of Appointment with Psychiatrist: 9:30 AM Psychiatric Appointment Comment: [address] [place] [address], [place] [address] Therapist Name of Therapist: Cassie Roche LPC Therapist's Date of Therapist Appointment: 02/18/23 Time of Therapist Appointment: 12:00 PM Therapy Appointment Comment: [id number] , [place] [address] Post Discharge Appointments Primary Care Physician Name Of Family Doctor/PCP: [facility] - Dr. Sandhu [facility] Date of Future Appointment with PCP: 02/22/23 Time of Appointment with PCP: 10:45 AM Provider Appointment Comment: [address], [address], [place] [address] (2) Obsessive compulsive disorder Obsessive-compulsive disorder type: mixed obsessional thoughts and acts Qualified Code(s): F42.2 - Mixed obsessional thoughts and acts
[2023-02-18] MEDS: ARIPiprazole 5 MG TAB PO SCH (17:58)
[2023-02-19] MEDS: ARIPiprazole 5 MG TAB PO SCH (09:15)
[2023-02-19] MEDS: POTASSIUM CHLORIDE 20 MEQ/15 ML UDC PO SCH ×2 (09:15→21:02)
[2023-02-19] MEDS: clonazePAM 1 MG TAB PO SCH ×2 (09:15→21:02)
[2023-02-19] MEDS: SERTRALINE HCL 100 MG TABLET PO SCH (09:15)
--- NOTE | 2023-02-19 09:35 | Psychiatric Progress Note ---
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 She is recently back on 2/3 the previous dose and reporting feeling overwhelmed. Much of this appears to represent anxiety, including fears of what she "might do". It seems likely that resuming the previously effective sertraline dose will eventually help. Right now the anxiety is sufficiently severe as to represent a significant risk factor for suicide. 02/19/2023: Pt looks better, which all staff have noted. She's less psychomotorically retarded, has brighter affect, is more engaged. However, subjectively she feels unimproved. She feels as if she can't tolerate the aripiprazole due to "flashes", described as being exactly like her disturbing in trusive OCD imagery. She's still not willing to take olanzapine, can't really articulate her concern about it. After some discussion agreed to a trial of quetiapine. Discussed with pt results of the RYAN panel, which could be consistent with SLE. Recommended outpatient follow-up with a steam roller operator. 02/18/2023: Pt very demoralized by lack of rapid improvement, says she feels as if she's "never going to get better". Says that until today she was primarily having obsessive doubts about whether she deserved to live but that today she's been having thoughts that life wouldn't be worth living if it continued like this and that it would be worth killing herself to avoid that. She does deny any current suicidal plan or intent. She wants do "get more aggressive with medication". Reviewed that increasing SSRI won't make it work faster and that we just increased above what was shown to work for her in the past in order to ensure adequacy of dose. Reviewed that it appears she may be using maximal dose of clonazepam that doesn't sedate here; it's at least somewhat effective for her anxiety. Devoted considerable time to exploring possible augmentation with atypical antipsychotic. Olanzapine has some published evidence of potential efficacy for OCD, and among antipsychotics (all of which can precipitate or exacerbate OC symptoms) appears to have the lowest risk of worsening her obsessive-compulsive symptoms. It may have higher risk of metabolic side effects than some other atypical antipsychotics. Aripiprazole may have among the lowest risks of metabolic side effects but less evidence of benefit for OCD, though it seems to have relatively low risk of exacerbating it. Pt notes (for the first time) that she took aripiprazole to augment sertraline in the past and stopped because she gained weight. Despite this, she would like another trial. Risks and benefits of, and alternatives to, the use of aripiprazole (Abilify) for mood were reviewed. This discussion included but was not limited to issues known potentially to be associated with use of such medication, especially at high doses or with longer use, including sedation, weight gain, problems with glucose metabolism including Type II diabetes, problems with lipid metabolism, cardiac conduction problems, or rarely involuntary movements, parkinsonian symptoms, or even acute dystonia or life-threatening Neuroleptic Malignant Syndrome. Discussed the need for periodic monitoring of fasting glucose or Hemoglobin A1c and fasting lipid panel, which were ordered for baseline monitoring. The patient agreed to start a trial of aripiprazole. 02/17/2023: Presents as less overwhelmed and anxious today, with no evidence at all of sedation following resumption of increased AM clonazepam. She continues to have intrusive, ruminative thoughts about whether she deserves to feel better or even to live, that she might be burden on her parents or the world at large but she's more able to distract herself with activities or interactions with others. Has not required any PRN lorazepam last night or thus far today, but is somewhat preoccupied with ensuring it's still available (my sense is feeling as if she needs a "safety net"). Has similarly tolerated increase of sertraline to 200 mg with no adverse effect. Sleeping fairly well. Insists she's eating more than has been documented. 02/16/2023: Had an episode of panic yesterday, obsessing over "never getting better" and that she might "always be a burden". Has used more lorazepam today with generally worse anxiety and more obsessive worrying about never getting better. Although she had possible sedation on higher clonazepam dose, anxiety is worse today. Discussed reverting to 1 mg BID. While 150 mg sertraline was effective in the past and likely to be effective now, pt is obsessing about "never getting better". A dose increase above an effective dose won't work better or faster, but could help ensure dose adequacy and perhaps help her feel more reassured that it will eventually work. 02/15/2023: Pt says that she'd been very worried that her being her on Thanksgiving would burden her parents with concern and worry. They visited yesterday and she was very relieved that, while they're clearly concerned about her welfare, they think she's "where [she] should be". Reports feeling more sedated today following increase of clonazepam to 1 mg BID. Discussed dividing daytime dose of clonazepam or reducing it back to 0.5 mg and continuing 1 mg at HS. Pt notes that she felt noticeably less anxious when she woke up this morning than on previous days here and would like to continue the 1 mg HS dose. 02/14/2023: Pt says she doesn't think she feels much better than at admission. She has been sleeping more and presents as more engaged and interactive. However , yesterday evening she was distressed by ruminative/obsessive thoughts and feeling overwhelmed by her inability to control them. Spoke about cognitive- behavioral approaches including distraction, thought-stopping. In light of how anxious she is about the obsessions, discussed increasing clonazepam. While this certainly would have no benefit for obsessive thoughts themselves, the secondary anxiety spawned by them should be responsive to anxiolytic medication. Pt has noted no daytime sedation or any other adverse effect from the current dose. Potassium level was 3.6 mmol/L on current replenishment regimen. 02/13/2023: Reports a bit of improvement in mood overall. Woke early feeling very anxious, got PRN lorazepam. Discussed that anxiety seems to be the primary factor in how overwhelmed she feels. Will continue clonazepam trial for this. Discussed her IIH at some length, particularly in terms of relapse risk off acetazolamide. She's not very concerned and would like to remain off that med. Has tolerated increase of sertraline to 150 mg, on which dose she did well in the past. She has noted no adverse effect attributable to any of her medication (including lorazepam, which she usually dislikes). 02/12/2023: Hypokalemia seems very likely a result of recently-stopped acetazolamide but for now needs to be replenished. It's unclear how the pseudotumor cerebri might do without treatment but pt prefers not to resume acetazolamide. (1) Major depressive disorder, recurrent, severe without psychotic features: (2) Obsessive compulsive disorder: (3) Suicidal ideation: (4) Idiopathic intracranial hypertension: (5) Vitamin D deficiency: (6) Hypokalemia: Plan 02/19/2023: * start trial of quetiapine 25 mg QHS * stop aripiprazole 5 mg QAM - started 02/18/2023 * continue sertraline 200 mg daily - increased 02/16/2023 from 150 mg, increased 02/12/2023 from prior to admission dose of 100 mg (but previous effective dose had been 150 mg) * continue clonazepam 1 mg BID - increased 02/16/2023 back to 1 mg BID, decreased 02/15/2023 to 0.5 mg AM & 1 mg HS, increased 02/14/2023 to 1 mg BID, started 02/12/2023 at 0.5 mg BID * continue ergocalciferol 50,000 IU twice weekly - started 02/12/2023 * continue KCl 20 mEq BID * HgbA1c and fasting lipid panel ordered for AM 02/18/2023: * start aripiprazole 5 mg QAM * continue sertraline 200 mg daily - increased 02/16/2023 from 150 mg, increased 02/12/2023 from prior to admission dose of 100 mg (but previous effective dose had been 150 mg) * continue clonazepam 1 mg BID - increased 02/16/2023 back to 1 mg BID, decreased 02/15/2023 to 0.5 mg AM & 1 mg HS, increased 02/14/2023 to 1 mg BID, started 02/12/2023 at 0.5 mg BID * continue ergocalciferol 50,000 IU twice weekly - started 02/12/2023 * continue KCl 20 mEq BID * HgbA1c and fasting lipid panel ordered for AM 02/17/2023: * continue sertraline 200 mg daily - increased 02/16/2023 from 150 mg, increased 02/12/2023 from prior to admission dose of 100 mg (but previous effective dose had been 150 mg) * continue clonazepam 1 mg BID - increased 02/16/2023 back to 1 mg BID, decreased 02/15/2023 to 0.5 mg AM & 1 mg HS, increased 02/14/2023 to 1 mg BID, started 02/12/2023 at 0.5 mg BID * continue ergocalciferol 50,000 IU twice weekly - started 02/12/2023 * continue KCl 20 mEq BID 02/16/2023: * increase sertraline to 200 mg daily - increased 02/12/2023 from prior to admision dose of 100 mg (but previous effective dose had been 150 mg) * increase clonazepam back to 1 mg BID - decreased 02/15/2023 to 0.5 mg AM & 1 mg HS, increased 02/14/2023 to 1 mg BID, started 02/12/2023 at 0.5 mg BID * continue ergocalciferol 50,000 IU twice weekly - started 02/12/2023 * continue KCl 20 mEq BID 02/15/2023: * continue sertraline 150 mg daily - increased 02/12/2023 from prior to admision dose of 100 mg (but previous effective dose had been 150 mg) * reduce clonazepam to 0.5 mg QAM & 1 mg QHS - increased 02/14/2023 to 1 mg BID, started 02/12/2023 at 0.5 mg BID * continue ergocalciferol 50,000 IU twice weekly - started 02/12/2023 * continue KCl 20 mEq BID 02/14/2023: * continue sertraline 150 mg daily - increased 02/12/2023 from prior to admision dose of 100 mg (but previous effective dose had been 150 mg) * increase clonazepam to 1 mg BID - started 02/12/2023 at 0.5 mg BID * continue ergocalciferol 50,000 IU twice weekly - started 02/12/2023 * continue KCl 20 mEq BID 02/13/2023: * continue sertraline 150 mg daily - increased 02/12/2023 from prior to admision dose of 100 mg (but previous effective dose had been 150 mg) * continue clonazepam 0.5 mg BID - started 02/12/2023 * continue ergocalciferol 50,000 IU twice weekly - started 02/12/2023 * continue KCl 20 mEq BID * basic metabolic panel, largely to recheck potassium 02/12/2023: The patient was admitted to the [facility] ([facility]) on q15 minute checks (behavioral with suicide precautions) for safety.The patient will participate in group, recreational, and milieu therapies and will be offered additional individual and family sessions as clinically appropriate. * increase sertraline to 150 mg daily * start ergocalciferol 50,000 IU twice weekly * start KCl 20 mEq BID Inventory Assets Strengths: supportive relationships, voluntary, good insight, intelligent employed, Needs: safety and stabilization, medication adjustment, additional coping skills, increased outpatient services Suicide Risk Level Suicide Risk Level: High-Moderate (q15 min suicide checks) (reports feeling safe now but continues to have suicidal thoughts) Risk Factors Assessment Male: No : Yes Do You Have Access To A Gun?: No Health Problems: Yes Mental Health Diagnoses: Yes Substance Use Disorders: Yes Previous Attempt: No Previous Psychiatric Hospitalization: Yes Hopelessness: Yes Protective Factors Assessment Responsible for Young Children: No 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 Chief Complaint "[]". Review of Systems Sleep Information Total Hours of Sleep: 7.75 Meal Information Percent Meal Consumed - Breakfast: 75 Percent Meal Consumed - Lunch: 25 Percent Meal Consumed - Dinner: 100 Subjective Subjective The patient was seen and assessed and interval progress reviewed in a multidisciplinary team meeting with the treatment team. For details, see the "Impression" section. Overall I spent a total of 41 minutes for this inpatient follow-up including review of chart records, review of test results, direct evaluation of the patient [id number], counseling the patient, reconciling and ordering medication, medication education with the patient, risk assessment, discussion during interdisciplinary treatment rounds, and documentation in the electronic health record. Physical Exam Psychiatric Orientation: alert, oriented to person, oriented to place, oriented to time and cooperative Apperance: appropriately dressed, appropriately groomed and appeared stated age Eye Contact: + fair eye contact Motor Behavior: + psychomotor retardation Speech: normal rate/rhythm/volume of speech Affect: + depressed affect, + anxious affect and mood congruent with affect Mood: + depressed mood and + anxious mood Thought Process: linear/logical thought process and clear/coherent thought process Thought Content: + preoccupation, + obsessions, + cognitive distortions, reality based without delusions, + hopelessness and + self deprecation Suicidal Thoughts: denies suicidal plan and denies suicidal intent; + reports suicidal thoughts Homicidal Thoughts: denies homicidal thoughts Hallucinations: no auditory hallucinations and no visual hallucinations Cognition: recent memory grossly intact, remote memory grossly intact, attention grossly intact and language grossly intact Estimated Intelligence: consistent with education level Insight: + fair insight Judgment: + fair judgement Vital Signs (Past 24 Hours) Last Vital Signs Temp 36.8 C 02/19/23 06:46 Pulse 102 H 02/19/23 06:47 Resp 16 02/19/23 06:46 BP 112/77 02/19/23 06:47 Pulse Ox 98 02/17/23 06:49 O2 Del Method Room Air 02/17/23 06:49 Results & Data ([facility]) Current Inpatient Medications Current Inpatient Medications: Current Inpatient Medications Acetaminophen (Acetaminophen 325 Mg Tab) 650 mg PO Q4H PRN PRN Reason: Headache or Minor Fever Stop: 03/13/23 19:20 Al Hydrox/Mg Hydrox/Simethicone (Aluminum/Magnesium Susp 30 Ml Udc) 30 ml PO Q4H PRN PRN Reason: GI Upset Stop: 03/13/23 19:20 Aripiprazole (Aripiprazole 5 Mg Tab) 5 mg PO QAM [facility]IS Stop: 03/20/23 17:14 Last Admin: 02/19/23 09:15 Dose: 5 mg Bismuth Subsalicylate (Bismuth Subsalicylate Liqd 236 Ml) 15 ml PO PRN PRN PRN Reason: Loose Stool Stop: 03/13/23 19:20 Clonazepam (Clonazepam 1 Mg Tab) 1 mg PO BID [facility] Stop: 03/18/23 20:59 Last Admin: 02/19/23 09:15 Dose: 1 mg Ergocalciferol (Ergocalciferol 50,000 Units 1250 Mcg Cap) 50,000 units PO SuWe@0900 [facility] Stop: 03/15/23 16:29 Last Admin: 02/17/23 08:14 Dose: 50,000 units Hydroxyzine HCl (Hydroxyzine Hcl 25 Mg Tab) 50 mg PO HSZ PRN PRN Reason: Insomnia Stop: 03/13/23 19:20 Hydroxyzine HCl (Hydroxyzine Hcl 25 Mg Tab) 25 mg PO Q4H PRN PRN Reason: Anxiety Stop: 03/13/23 19:20 Lorazepam (Lorazepam 0.5 Mg Tab) 0.5 mg PO BID PRN PRN Reason: Anxiety Stop: 03/13/23 21:02 Last Admin: 02/18/23 19:36 Dose: 0.5 mg Magnesium Hydroxide (Magnesium Hydroxide Susp 30 Ml Udc) 30 ml PO DAILY PRN PRN Reason: Constipation Stop: 03/13/23 19:20 Potassium Chloride (Potassium Chloride 20 Meq/15 Ml Udc) 20 meq PO BID [facility] Stop: 03/15/23 20:59 Last Admin: 02/19/23 09:15 Dose: 20 meq Sertraline HCl (Sertraline Hcl 100 Mg Tablet) 200 mg PO QAM [facility] Stop: 03/19/23 08:59 Last Admin: 02/19/23 09:15 Dose: 200 mg Sodium Chloride (Sodium Chloride 0.65% Na Soln 45 Ml ([place])) 1 - 2 sprays NA PRN PRN PRN Reason: Nasal Dryness/Congestion Stop: 03/13/23 19:20 Mental Health & Subst Abuse Tx Psychiatrist Name of Psychiatrist: Sammy Whitt PA-C Psychiatrist's Date Of Appointment With Psychiatric Provider: 03/13/23 Time of Appointment with Psychiatrist: 9:30 AM Psychiatric Appointment Comment: [address] [place] [address] Therapist Name of Therapist: Cassie Felipe - Kortney Roche LPC Therapist's Date of Therapist Appointment: 02/18/23 Time of Therapist Appointment: 12:00 PM Therapy Appointment Comment[address] [place] [address] Post Discharge Appointments Primary Care Physician Name Of Family Doctor/PCP: [facility] - Dr. Sandhu Primary [facility] Date of Future Appointment with PCP: 02/22/23 Time of Appointment with PCP: 10:45 AM Provider Appointment Comment: [address], [address], [place] [address] (2) Obsessive compulsive disorder Obsessive-compulsive disorder type: mixed obsessional thoughts and acts Qualified Code(s): F42.2 - Mixed obsessional thoughts and acts
[2023-02-19] MEDS: QUEtiapine FUMARATE 25 MG TABLET PO SCH (21:02)
[2023-02-20] MEDS: ERGOCALCIFEROL 50,000 UNITS 1250 MCG CAP PO SCH (09:06)
[2023-02-20] MEDS: clonazePAM 1 MG TAB PO SCH ×2 (09:06→21:40)
[2023-02-20] MEDS: SERTRALINE HCL 100 MG TABLET PO SCH (09:07)
[2023-02-20] MEDS: POTASSIUM CHLORIDE 20 MEQ/15 ML UDC PO SCH ×2 (09:07→21:41)
[2023-02-20] MEDS: LORazepam 0.5 MG TAB PO PRN (14:49)
--- NOTE | 2023-02-20 18:55 | Psychiatric Progress Note ---
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 She is recently back on 2/3 the previous dose and reporting feeling overwhelmed. Much of this appears to represent anxiety, including fears of what she "might do". It seems likely that resuming the previously effective sertraline dose will eventually help. Right now the anxiety is sufficiently severe as to represent a significant risk factor for suicide. 02/20/2023: Guardedly acknowledges that she might have had some improvement. She certainly continues to appear gradually to be improving. Still rapidly exhibits distress when discussing symptoms, but in social interactions and most of the time in groups is less distressed. Is ambivalent about whether she's noted any improvement or any side effects since switching to quetiapine from aripiprazole. Acknowledges that she's "just generally worried about" medications. 02/19/2023: Pt looks better, which all staff have noted. She's less psychomotorically retarded, has brighter affect, is more engaged. However, subjectively she feels unimproved. She feels as if she can't tolerate the aripiprazole due to "flashes", described as being exactly like her disturbing intrusive OCD imagery. She's still not willing to take olanzapine, can't really articulate her concern about it. After some discussion agreed to a trial of quetiapine. Discussed with pt results of the RYAN panel, which could be consistent with SLE. Recommended outpatient follow-up with a process consultant. 02/18/2023: Pt very demoralized by lack of rapid improvement, says she feels as if she's "never going to get better". Says that until today she was primarily having obsessive doubts about whether she deserved to live but that today she's been having thoughts that life wouldn't be worth living if it continued like this and that it would be worth killing herself to avoid that. She does deny any current suicidal plan or intent. She wants do "get more aggressive with medication". Reviewed that increasing SSRI won't make it work faster and that we just increased above what was shown to work for her in the past in order to ensure adequacy of dose. Reviewed that it appears she may be using maximal dose of clonazepam that doesn't sedate here; it's at least somewhat effective for her anxiety. Devoted considerable time to exploring possible augmentation with atypical antipsychotic. Olanzapine has some published evidence of potential efficacy for OCD, and among antipsychotics (all of which can precipitate or exacerbate OC symptoms) appears to have the lowest risk of worsening her obsessive-compulsive symptoms. It may have higher risk of metabolic side effects than some other atypical antipsychotics. Aripiprazole may have among the lowest risks of metabolic side effects but less evidence of benefit for OCD, though it seems to have relatively low risk of exacerbating it. Pt notes (for the first time) that she took aripiprazole to augment sertraline in the past and stopped because she gained weight. Despite this, she would like another trial. Risks and benefits of, and alternatives to, the use of aripiprazole (Abilify) for mood were reviewed. This discussion included but was not limited to issues known potentially to be associated with use of such medication, especially at high doses or with longer use, including sedation, weight gain, problems with glucose metabolism including Type II diabetes, problems with lipid metabolism, cardiac conduction problems, or rarely involuntary movements, parkinsonian s ymptoms, or even acute dystonia or life-threatening Neuroleptic Malignant Syndrome. Discussed the need for periodic monitoring of fasting glucose or Hemoglobin A1c and fasting lipid panel, which were ordered for baseline monitoring. The patient agreed to start a trial of aripiprazole. 02/17/2023: Presents as less overwhelmed and anxious today, with no evidence at all of sedation following resumption of increased AM clonazepam. She continues to have intrusive, ruminative thoughts about whether she deserves to feel better or even to live, that she might be burden on her parents or the world at large but she's more able to distract herself with activities or interactions with others. Has not required any PRN lorazepam last night or thus far today, but is somewhat preoccupied with ensuring it's still available (my sense is feeling as if she needs a "safety net"). Has similarly tolerated increase of sertraline to 200 mg with no adverse effect. Sleeping fairly well. Insists she's eating more than has been documented. 02/16/2023: Had an episode of panic yesterday, obsessing over "never getting better" and that she might "always be a burden". Has used more lorazepam today with generally worse anxiety and more obsessive worrying about never getting better. Although she had possible sedation on higher clonazepam dose, anxiety is worse today. Discussed reverting to 1 mg BID. While 150 mg sertraline was effective in the past and likely to be effective now, pt is obsessing about "never getting better". A dose increase above an effective dose won't work better or faster, but could help ensure dose adequacy and perhaps help her feel more reassured that it will eventually work. 02/15/2023: Pt says that she'd been very worried that her being her on Thanksgiving would burden her parents with concern and worry. They visited yesterday and she was very relieved that, while they're clearly concerned about her welfare, they think she's "where [she] should be". Reports feeling more sedated today following increase of clonazepam to 1 mg BID. Discussed dividing daytime dose of clonazepam or reducing it back to 0.5 mg and continuing 1 mg at HS. Pt notes that she felt noticeably less anxious when she woke up this morning than on previous days here and would like to continue the 1 mg HS dose. 02/14/2023: Pt says she doesn't think she feels much better than at admission. She has been sleeping more and presents as more engaged and interactive. However, yesterday evening she was distressed by ruminative/obsessive thoughts and feeling overwhelmed by her inability to control them. Spoke about cognitive- behavioral approaches including distraction, thought-stopping. In light of how anxious she is about the obsessions, discussed increasing clonazepam. While this certainly would have no benefit for obsessive thoughts themselves, the secondary anxiety spawned by them should be responsive to anxiolytic medication. Pt has noted no daytime sedation or any other adverse effect from the current dose. Potassium level was 3.6 mmol/L on current replenishment regimen. 02/13/2023: Reports a bit of improvement in mood overall. Woke early feeling very anxious, got PRN lorazepam. Discussed that anxiety seems to be the primary factor in how overwhelmed she feels. Will continue clonazepam trial for this. Discussed her IIH at some length, particularly in terms of relapse risk off acetazolamide. She's not very concerned and would like to remain off that med. Has tolerated increase of sertraline to 150 mg, on which dose she did well in the past. She has noted no adverse effect attributable to any of her medication (including lorazepam, which she usually dislikes). 02/12/2023: Hypokalemia seems very likely a result of recently-stopped acetazolamide but for now needs to be replenished. It's unclear how the pseudotumor cerebri might do without treatment but pt prefers not to resume acetazolamide. (1) Major depressive disorder, recurrent, severe without psychotic features: (2) Obsessive compulsive disorder: (3) Suicidal ideation: (4) Idiopathic intracranial hypertension: (5) Vitamin D deficiency: (6) Hypokalemia: Plan 02/20/2023: * continue trial of quetiapine 25 mg QHS - started 02/19/2023 * continue sertraline 200 mg daily - increased 02/16/2023 from 150 mg, increased 02/12/2023 from prior to admission dose of 100 mg (but previous effective dose had been 150 mg) * continue clonazepam 1 mg BID - increased 02/16/2023 back to 1 mg BID, decreased 02/15/2023 to 0.5 mg AM & 1 mg HS, increased 02/14/2023 to 1 mg BID, started 02/12/2023 at 0.5 mg BID * continue ergocalciferol 50,000 IU twice weekly - started 02/12/2023 * continue KCl 20 mEq BID 02/19/2023: * start trial of quetiapine 25 mg QHS * stop aripiprazole 5 mg QAM - started 02/18/2023 * continue sertraline 200 mg daily - increased 02/16/2023 from 150 mg, increased 02/12/2023 from prior to admission dose of 100 mg (but previous effective dose had been 150 mg) * continue clonazepam 1 mg BID - increased 02/16/2023 back to 1 mg BID, decreased 02/15/2023 to 0.5 mg AM & 1 mg HS, increased 02/14/2023 to 1 mg BID, started 02/12/2023 at 0.5 mg BID * continue ergocalciferol 50,000 IU twice weekly - started 02/12/2023 * continue KCl 20 mEq BID * HgbA1c and fasting lipid panel ordered for AM 02/18/2023: * start aripiprazole 5 mg QAM * continue sertraline 200 mg daily - increased 02/16/2023 from 150 mg, increased 02/12/2023 from prior to admission dose of 100 mg (but previous effective dose had been 150 mg) * continue clonazepam 1 mg BID - increased 02/16/2023 back to 1 mg BID, decreased 02/15/2023 to 0.5 mg AM & 1 mg HS, increased 02/14/2023 to 1 mg BID, started 02/12/2023 at 0.5 mg BID * continue ergocalciferol 50,000 IU twice weekly - started 02/12/2023 * continue KCl 20 mEq BID 02/17/2023: * continue sertraline 200 mg daily - increased 02/16/2023 from 150 mg, increased 02/12/2023 from prior to admission dose of 100 mg (but previous effective dose had been 150 mg) * continue clonazepam 1 mg BID - increased 02/16/2023 back to 1 mg BID, decreased 02/15/2023 to 0.5 mg AM & 1 mg HS, increased 02/14/2023 to 1 mg BID, started 02/12/2023 at 0.5 mg BID * continue ergocalciferol 50,000 IU twice weekly - started 02/12/2023 * continue KCl 20 mEq BID 02/16/2023: * increase sertraline to 200 mg daily - increased 02/12/2023 from prior to admision dose of 100 mg (but previous effective dose had been 150 mg) * increase clonazepam back to 1 mg BID - decreased 02/15/2023 to 0.5 mg AM & 1 mg HS, increased 02/14/2023 to 1 mg BID, started 02/12/2023 at 0.5 mg BID * continue ergocalciferol 50,000 IU twice weekly - started 02/12/2023 * continue KCl 20 mEq BID 02/15/2023: * continue sertraline 150 mg daily - increased 02/12/2023 from prior to admision dose of 100 mg (but previous effective dose had been 150 mg) * reduce clonazepam to 0.5 mg QAM & 1 mg QHS - increased 02/14/2023 to 1 mg BID, started 02/12/2023 at 0.5 mg BID * continue ergocalciferol 50,000 IU twice weekly - started 02/12/2023 * continue KCl 20 mEq BID 02/14/2023: * continue sertraline 150 mg daily - increased 02/12/2023 from prior to admision dose of 100 mg (but previous effective dose had been 150 mg) * increase clonazepam to 1 mg BID - started 02/12/2023 at 0.5 mg BID * continue ergocalciferol 50,000 IU twice weekly - started 02/12/2023 * continue KCl 20 mEq BID 02/13/2023: * continue sertraline 150 mg daily - increased 02/12/2023 from prior to admision dose of 100 mg (but previous effective dose had been 150 mg) * continue clonazepam 0.5 mg BID - started 02/12/2023 * continue ergocalciferol 50,000 IU twice weekly - started 02/12/2023 * continue KCl 20 mEq BID * basic metabolic panel, largely to recheck potassium 02/12/2023: The patient was admitted to the [facility] ([facility]) on q15 minute checks (behavioral with suicide precautions) for safety.The patient will participate in group, recreational, and milieu therapies and will be offered additional individual and family sessions as clinically appropriate. * increase sertraline to 150 mg daily * start ergocalciferol 50,000 IU twice weekly * start KCl 20 mEq BID Inventory Assets Strengths: supportive relationships, voluntary, good insight, intelligent employed, Needs: safety and stabilization, medication adjustment, additional coping skills, increased outpatient services Suicide Risk Level Suicide Risk Level: High-Moderate (q15 min suicide checks) (reports feeling safe now but continues to have suicidal thoughts) Risk Factors Assessment Male: No : Yes Do You Have Access To A Gun?: No Health Problems: Yes Mental Health Diagnoses: Yes Substance Use Disorders: Yes Previous Attempt: No Previous Psychiatric Hospitalization: Yes Hopelessness: Yes Protective Factors Assessment Responsible for Young Children: No 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 Chief Complaint "Maybe not as bad". Review of Systems Sleep Information Total Hours of Sleep: 7 Meal Information Percent Meal Consumed - Breakfast: 100 Percent Meal Consumed - Lunch: 90 Percent Meal Consumed - Dinner: 75 Subjective Subjective The patient was seen and assessed and interval progress reviewed in a multidisciplinary team meeting with the treatment team. For details, see the "Impression" section. Overall I spent a total of 28 minutes for this inpatient follow-up including review of chart records, direct evaluation of the patient [id number], counseling the patient, medication education with the patient, risk assessment, discussion during interdisciplinary treatment rounds, and documentation in the electronic health record. Physical Exam Psychiatric Orientation: alert, oriented to person, oriented to place, oriented to time and cooperative Apperance: appropriately dressed, appropriately groomed and appeared stated age Eye Contact: good eye contact and + fair eye contact Motor Behavior: + psychomotor retardation Speech: normal rate/rhythm/volume of speech Affect: + depressed affect, + anxious affect and mood congruent with affect Mood: + depressed mood and + anxious mood Thought Process: linear/logical thought process and clear/coherent thought process Thought Content: + preoccupation, + obsessions, + cognitive distortions, reality based without delusions, + hopelessness and + self deprecation Suicidal Thoughts: denies suicidal plan and denies suicidal intent; + reports suicidal thoughts Homicidal Thoughts: denies homicidal thoughts Hallucinations: no auditory hallucinations and no visual hallucinations Cognition: recent memory grossly intact, remote memory grossly intact, attention grossly intact and language grossly intact Estimated Intelligence: consistent with education level Insight: + fair insight Judgment: + fair judgement Vital Signs (Past 24 Hours) Last Vital Signs Temp 36.4 C 02/20/23 06:00 Pulse 97 H 02/20/23 06:32 Resp 18 02/20/23 06:00 BP 110/75 02/20/23 06:32 Pulse Ox 98 02/17/23 06:49 O2 Del Method Room Air 02/17/23 06:49 Results & Data ([facility]) Current Inpatient Medications Current Inpatient Medications: Current Inpatient Medications Acetaminophen (Acetaminophen 325 Mg Tab) 650 mg PO Q4H PRN PRN Reason: Headache or Minor Fever Stop: 03/13/23 19:20 Al Hydrox/Mg Hydrox/Simethicone (Aluminum/Magnesium Susp 30 Ml Udc) 30 ml PO Q4H PRN PRN Reason: GI Upset Stop: 03/13/23 19:20 Bismuth Subsalicylate (Bismuth Subsalicylate Liqd 236 Ml) 15 ml PO PRN PRN PRN Reason: Loose Stool Stop: 03/13/23 19:20 Clonazepam (Clonazepam 1 Mg Tab) 1 mg PO BID DORIS Stop: 03/18/23 20:59 Last Admin: 02/20/23 09:06 Dose: 1 mg Ergocalciferol (Ergocalciferol 50,000 Units 1250 Mcg Cap) 50,000 units PO SuWe@0900 DORIS Stop: 03/15/23 16:29 Last Admin: 02/20/23 09:06 Dose: 50,000 units Hydroxyzine HCl (Hydroxyzine Hcl 25 Mg Tab) 50 mg PO HSZ PRN PRN Reason: Insomnia Stop: 03/13/23 19:20 Hydroxyzine HCl (Hydroxyzine Hcl 25 Mg Tab) 25 mg PO Q4H PRN PRN Reason: Anxiety Stop: 03/13/23 19:20 Lorazepam (Lorazepam 0.5 Mg Tab) 0.5 mg PO BID PRN PRN Reason: Anxiety Stop: 03/13/23 21:02 Last Admin: 02/20/23 14:49 Dose: 0.5 mg Magnesium Hydroxide (Magnesium Hydroxide Susp 30 Ml Udc) 30 ml PO DAILY PRN PRN Reason: Constipation Stop: 03/13/23 19:20 Potassium Chloride (Potassium Chloride 20 Meq/15 Ml Udc) 20 meq PO BID DORIS Stop: 03/15/23 20:59 Last Admin: 02/20/23 09:07 Dose: 20 meq Quetiapine Fumarate (Quetiapine Fumarate 25 Mg Tablet) 25 mg PO HS DORIS Stop: 03/21/23 21:59 Last Admin: 02/19/23 21:02 Dose: 25 mg Sertraline HCl (Sertraline Hcl 100 Mg Tablet) 200 mg PO QAM DORIS Stop: 03/19/23 08:59 Last Admin: 02/20/23 09:07 Dose: 200 mg Sodium Chloride (Sodium Chloride 0.65% Na Soln 45 Ml ([place])) 1 - 2 sprays NA PRN PRN PRN Reason: Nasal Dryness/Congestion Stop: 03/13/23 19:20 Mental Health & Subst Abuse Tx Psychiatrist Name of Psychiatrist: Sammy Solis - Alexi Whitt PA-C Psychiatrist's Date Of Appointment With Psychiatric Provider: 03/13/23 Time of Appointment with Psychiatrist: 9:30 AM Psychiatric Appointment Comment: [address] [facility], [place] [address] Therapist Name of Therapist: Cassie Felipe - Kortney Roche LPC Therapist's Date of Therapist Appointment: 02/18/23 Time of Therapist Appointment: 12:00 PM Therapy Appointment Comment: [address] [facility], [place] [address] Post Discharge Appointments Primary Care Physician Name Of Family Doctor/PCP: [facility] - Dr. Fernanda Slaughter [facility] Date of Future Appointment with PCP: 03/05/2023 Time of Appointment with PCP: 7:45 AM Provider Appointment Comment: [address], [address], [place] [address] (2) Obsessive compulsive disorder Obsessive-compulsive disorder type: mixed obsessional thoughts and acts Qualified Code(s): F42.2 - Mixed obsessional thoughts and acts
[2023-02-20] MEDS: QUEtiapine FUMARATE 25 MG TABLET PO SCH (21:41)
[2023-02-21] MEDS: POTASSIUM CHLORIDE 20 MEQ/15 ML UDC PO SCH ×2 (08:53→20:51)
[2023-02-21] MEDS: clonazePAM 1 MG TAB PO SCH ×2 (08:53→20:51)
[2023-02-21] MEDS: SERTRALINE HCL 100 MG TABLET PO SCH (08:53)
--- NOTE | 2023-02-21 09:04 | Psychiatric Progress Note ---
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 She is recently back on 2/3 the previous dose and reporting feeling overwhelmed. Much of this appears to represent anxiety, including fears of what she "might do". It seems likely that resuming the previously effective sertraline dose will eventually help. Right now the anxiety is sufficiently severe as to represent a significant risk factor for suicide. 02/21/2023: Again acknowledges "a little improvement", still guarded about this. Denies any side effects. Nurses have voiced concerns about her requests for lorazepam when she not appear particularly anxious. Pt is already aware that she wouldn't be discharged on this medication. Will cautiously add 0.5 mg midday dose. Has been tolerating cautious titration of quetiapine with evident benefit at low dose, so will continue titration of this med. 02/20/2023: Guardedly acknowledges that she might have had some improvement. She certainly continues to appear gradually to be improving. Still rapidly exhibits distress when discussing symptoms, but in social interactions and most of the time in groups is less distressed. Is ambivalent about whether she's noted any improvement or any side effects since switching to quetiapine from aripiprazole. Acknowledges that she's "just generally worried about" medications. 02/19/2023: Pt looks better, which all staff have noted. She's less psychomotorically retarded, has brighter affect, is more engaged. However, subjectively she feels unimproved. She feels as if she can't tolerate the aripiprazole due to "flashes", described as being exactly like her disturbing intrusive OCD imagery. She's still not willing to take olanzapine, can't really articulate her concern about it. After some discussion agreed to a trial of quetiapine. Discussed with pt results of the RYAN panel, which could be consistent with SLE. Recommended outpatient follow-up with a online marketing manager. 02/18/2023: Pt very demoralized by lack of rapid improvement, says she feels as if she's "never going to get better". Says that until today she was primarily having obsessive doubts about whether she deserved to live but that today she's been having thoughts that life wouldn't be worth living if it continued like this and that it would be worth killing herself to avoid that. She does deny any current suicidal plan or intent. She wants do "get more aggressive with medication". Reviewed that increasing SSRI won't make it work faster and that we just increased above what was shown to work for her in the past in order to ensure adequacy of dose. Reviewed that it appears she may be using maximal dose of clonazepam that doesn't sedate here; it's at least somewhat effective for her anxiety. Devoted considerable time to exploring possible augmentation with atypical antipsychotic. Olanzapine has some published evidence of potential efficacy for OCD, and among antipsychotics (all of which can precipitate or exacerbate OC symptoms) appears to have the lowest risk of worsening her obsessive-compulsive symptoms. It may have higher risk of metabolic side effects than some other atypical antipsychotics. Aripiprazole may have among the lowest risks of metabolic side effects but less evidence of benefit for OCD, though it seems to have relatively low risk of exacerbating it. Pt notes (for the first time) that she took aripiprazole to augment sertraline in the past and stopped because she gained weight. Despite this, she would like another trial. Risks and benefits of, and alternatives to, the use of aripiprazole (Abilify) for mood were reviewed. This discussion included but was not limited to issues known potentially to be associated with use of such medication, especially at high doses or with longer use, including sedation, weight gain, problems with glucose metabolism including Type II diabetes, problems with lipid metabolism, cardiac conduction problems, or rarely involuntary movements, parkinsonian symptoms, or even acute dystonia or life-threatening Neuroleptic Malignant Syndrome. Discussed the need for periodic monitoring of fasting glucose or He moglobin A1c and fasting lipid panel, which were ordered for baseline monitoring. The patient agreed to start a trial of aripiprazole. 02/17/2023: Presents as less overwhelmed and anxious today, with no evidence at all of sedation following resumption of increased AM clonazepam. She continues to have intrusive, ruminative thoughts about whether she deserves to feel better or even to live, that she might be burden on her parents or the world at large but she's more able to distract herself with activities or interactions with others. Has not required any PRN lorazepam last night or thus far today, but is somewhat preoccupied with ensuring it's still available (my sense is feeling as if she needs a "safety net"). Has similarly tolerated increase of sertraline to 200 mg with no adverse effect. Sleeping fairly well. Insists she's eating more than has been documented. 02/16/2023: Had an episode of panic yesterday, obsessing over "never getting better" and that she might "always be a burden". Has used more lorazepam today with generally worse anxiety and more obsessive worrying about never getting better. Although she had possible sedation on higher clonazepam dose, anxiety is worse today. Discussed reverting to 1 mg BID. While 150 mg sertraline was effective in the past and likely to be effective now, pt is obsessing about "never getting better". A dose increase above an effective dose won't work better or faster, but could help ensure dose adequacy and perhaps help her feel more reassured that it will eventually work. 02/15/2023: Pt says that she'd been very worried that her being her on Thanksgiving would burden her parents with concern and worry. They visited yesterday and she was very relieved that, while they're clearly concerned about her welfare, they think she's "where [she] should be". Reports feeling more sedated today following increase of clonazepam to 1 mg BID. Discussed dividing daytime dose of clonazepam or reducing it back to 0.5 mg and continuing 1 mg at HS. Pt notes that she felt noticeably less anxious when she woke up this morning than on previous days here and would like to continue the 1 mg HS dose. 02/14/2023: Pt says she doesn't think she feels much better than at admission. She has been sleeping more and presents as more engaged and interactive. However, yesterday evening she was distressed by ruminative/obsessive thoughts and feeling overwhelmed by her inability to control them. Spoke about cognitive- behavioral approaches including distraction, thought-stopping. In light of how anxious she is about the obsessions, discussed increasing clonazepam. While this certainly would have no benefit for obsessive thoughts themselves, the secondary anxiety spawned by them should be responsive to anxiolytic medication. Pt has noted no daytime sedation or any other adverse effect from the current dose. Potassium level was 3.6 mmol/L on current replenishment regimen. 02/13/2023: Reports a bit of improvement in mood overall. Woke early feeling very anxious, got PRN lorazepam. Discussed that anxiety seems to be the primary factor in how overwhelmed she feels. Will continue clonazepam trial for this. Discussed her IIH at some length, particularly in terms of relapse risk off acetazolamide. She's not very concerned and would like to remain off that med. Has tolerated increase of sertraline to 150 mg, on which dose she did well in the past. She has noted no adverse effect attributable to any of her medication (including lorazepam, which she usually dislikes). 02/12/2023: Hypokalemia seems very likely a result of recently-stopped acetazolamide but for now needs to be replenished. It's unclear how the pseudotumor cerebri might do without treatment but pt prefers not to resume acetazolamide. (1) Major depressive disorder, recurrent, severe without psychotic features: (2) Obsessive compulsive disorder: (3) Suicidal ideation: (4) Idiopathic intracranial hypertension: (5) Vitamin D deficiency: (6) Hypokalemia: Plan 04/23/2022: * increase quetiapine to 25 mg & 50 mg QHS - started 02/19/2023 * continue sertraline 200 mg daily - increased 02/16/2023 from 150 mg, increased 02/12/2023 from prior to admission dose of 100 mg (but previous effective dose had been 150 mg) * increase clonazepam to 1 mg QAM, 0.5 mg midday, 1 mg QHS - increased 02/16/2023 back to 1 mg BID, decreased 02/15/2023 to 0.5 mg AM & 1 mg HS, increased 02/14/2023 to 1 mg BID, started 02/12/2023 at 0.5 mg BID * continue ergocalciferol 50,000 IU twice weekly - started 02/12/2023 * continue KCl 20 mEq BID 02/20/2023: * continue trial of quetiapine 25 mg QHS - started 02/19/2023 * continue sertraline 200 mg daily - increased 02/16/2023 from 150 mg, increased 02/12/2023 from prior to admission dose of 100 mg (but previous effective dose had been 150 mg) * continue clonazepam 1 mg BID - increased 02/16/2023 back to 1 mg BID, decreased 02/15/2023 to 0.5 mg AM & 1 mg HS, increased 02/14/2023 to 1 mg BID, started 02/12/2023 at 0.5 mg BID * continue ergocalciferol 50,000 IU twice weekly - started 02/12/2023 * continue KCl 20 mEq BID 02/19/2023: * start trial of quetiapine 25 mg QHS * stop aripiprazole 5 mg QAM - started 02/18/2023 * continue sertraline 200 mg daily - increased 02/16/2023 from 150 mg, increased 02/12/2023 from prior to admission dose of 100 mg (but previous effective dose had been 150 mg) * continue clonazepam 1 mg BID - increased 02/16/2023 back to 1 mg BID, decreased 02/15/2023 to 0.5 mg AM & 1 mg HS, increased 02/14/2023 to 1 mg BID, started 02/12/2023 at 0.5 mg BID * continue ergocalciferol 50,000 IU twice weekly - started 02/12/2023 * continue KCl 20 mEq BID * HgbA1c and fasting lipid panel ordered for AM 02/18/2023: * start aripiprazole 5 mg QAM * continue sertraline 200 mg daily - increased 02/16/2023 from 150 mg, increased 02/12/2023 from prior to admission dose of 100 mg (but previous effective dose had been 150 mg) * continue clonazepam 1 mg BID - increased 02/16/2023 back to 1 mg BID, decreased 02/15/2023 to 0.5 mg AM & 1 mg HS, increased 02/14/2023 to 1 mg BID, started 02/12/2023 at 0.5 mg BID * continue ergocalciferol 50,000 IU twice weekly - started 02/12/2023 * continue KCl 20 mEq BID 02/17/2023: * continue sertraline 200 mg daily - increased 02/16/2023 from 150 mg, increased 02/12/2023 from prior to admission dose of 100 mg (but previous effective do se had been 150 mg) * continue clonazepam 1 mg BID - increased 02/16/2023 back to 1 mg BID, decreased 02/15/2023 to 0.5 mg AM & 1 mg HS, increased 02/14/2023 to 1 mg BID, started 02/12/2023 at 0.5 mg BID * continue ergocalciferol 50,000 IU twice weekly - started 02/12/2023 * continue KCl 20 mEq BID 02/16/2023: * increase sertraline to 200 mg daily - increased 02/12/2023 from prior to admision dose of 100 mg (but previous effective dose had been 150 mg) * increase clonazepam back to 1 mg BID - decreased 02/15/2023 to 0.5 mg AM & 1 mg HS, increased 02/14/2023 to 1 mg BID, started 02/12/2023 at 0.5 mg BID * continue ergocalciferol 50,000 IU twice weekly - started 02/12/2023 * continue KCl 20 mEq BID 02/15/2023: * continue sertraline 150 mg daily - increased 02/12/2023 from prior to admision dose of 100 mg (but previous effective dose had been 150 mg) * reduce clonazepam to 0.5 mg QAM & 1 mg QHS - increased 02/14/2023 to 1 mg BID, started 02/12/2023 at 0.5 mg BID * continue ergocalciferol 50,000 IU twice weekly - started 02/12/2023 * continue KCl 20 mEq BID 02/14/2023: * continue sertraline 150 mg daily - increased 02/12/2023 from prior to admision dose of 100 mg (but previous effective dose had been 150 mg) * increase clonazepam to 1 mg BID - started 02/12/2023 at 0.5 mg BID * continue ergocalciferol 50,000 IU twice weekly - started 02/12/2023 * continue KCl 20 mEq BID 02/13/2023: * continue sertraline 150 mg daily - increased 02/12/2023 from prior to admision dose of 100 mg (but previous effective dose had been 150 mg) * continue clonazepam 0.5 mg BID - started 02/12/2023 * continue ergocalciferol 50,000 IU twice weekly - started 02/12/2023 * continue KCl 20 mEq BID * basic metabolic panel, largely to recheck potassium 02/12/2023: The patient was admitted to the [facility]) on q15 minute checks (behavioral with suicide precautions) for safety.The patient will participate in group, recreational, and milieu therapies and will be offered additional individual and family sessions as clinically appropriate. * increase sertraline to 150 mg daily * start ergocalciferol 50,000 IU twice weekly * start KCl 20 mEq BID Inventory Assets Strengths: supportive relationships, voluntary, good insight, intelligent employed, Needs: safety and stabilization, medication adjustment, additional coping skills, increased outpatient services Suicide Risk Level Suicide Risk Level: High-Moderate (q15 min suicide checks) (reports feeling safe now but continues to have suicidal thoughts) Risk Factors Assessment Male: No : Yes Do You Have Access To A Gun?: No Health Problems: Yes Mental Health Diagnoses: Yes Substance Use Disorders: Yes Previous Attempt: No Previous Psychiatric Hospitalization: Yes Hopelessness: Yes Protective Factors Assessment Responsible for Young Children: No 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 Chief Complaint "Maybe a little better". Review of Systems Sleep Information Total Hours of Sleep: 7.25 Meal Information Percent Meal Consumed - Breakfast: 100 Percent Meal Consumed - Lunch: 90 Percent Meal Consumed - Dinner: 75 Subjective Subjective The patient was seen and assessed and interval progress reviewed in a multidisciplinary team meeting with the treatment team. For details, see the "Impression" section. Overall I spent a total of 28 minutes for this inpatient follow-up including review of chart records, direct evaluation of the patient [id number], coun seling the patient, medication education with the patient, risk assessment, discussion during interdisciplinary treatment rounds, and documentation in the electronic health record. Physical Exam Psychiatric Orientation: alert, oriented to person, oriented to place, oriented to time and cooperative Apperance: appropriately dressed, appropriately groomed and appeared stated age Eye Contact: good eye contact and + fair eye contact Motor Behavior: + psychomotor retardation Speech: normal rate/rhythm/volume of speech Affect: + depressed affect, + anxious affect and mood congruent with affect Mood: + depressed mood and + anxious mood Thought Process: linear/logical thought process and clear/coherent thought process Thought Content: + preoccupation, + obsessions, + cognitive distortions, reality based without delusions, + hopelessness and + self deprecation Suicidal Thoughts: denies suicidal plan and denies suicidal intent; + reports suicidal thoughts Homicidal Thoughts: denies homicidal thoughts Hallucinations: no auditory hallucinations and no visual hallucinations Cognition: recent memory grossly intact, remote memory grossly intact, attention grossly intact and language grossly intact Estimated Intelligence: consistent with education level Insight: + fair insight Judgment: + fair judgement Vital Signs (Past 24 Hours) Last Vital Signs Temp 36.8 C 02/21/23 06:00 Pulse 98 H 02/21/23 06:34 Resp 16 02/21/23 06:00 BP 107/74 02/21/23 06:34 Pulse Ox 98 02/17/23 06:49 O2 Del Method Room Air 02/17/23 06:49 Results & Data ([facility]) Current Inpatient Medications Current Inpatient Medications: Current Inpatient Medications Acetaminophen (Acetaminophen 325 Mg Tab) 650 mg PO Q4H PRN PRN Reason: Headache or Minor Fever Stop: 03/13/23 19:20 Al Hydrox/Mg Hydrox/Simethicone (Aluminum/Magnesium Susp 30 Ml Udc) 30 ml PO Q4H PRN PRN Reason: GI Upset Stop: 03/13/23 19:20 Bismuth Subsalicylate (Bismuth Subsalicylate Liqd 236 Ml) 15 ml PO PRN PRN PRN Reason: Loose Stool Stop: 03/13/23 19:20 Clonazepam (Clonazepam 1 Mg Tab) 1 mg PO BID DORIS Stop: 03/18/23 20:59 Last Admin: 02/21/23 08:53 Dose: 1 mg Ergocalciferol (Ergocalciferol 50,000 Units 1250 Mcg Cap) 50,000 units PO SuWe@0900 DORIS Stop: 03/15/23 16:29 Last Admin: 02/20/23 09:06 Dose: 50,000 units Hydroxyzine HCl (Hydroxyzine Hcl 25 Mg Tab) 50 mg PO HSZ PRN PRN Reason: Insomnia Stop: 03/13/23 19:20 Hydroxyzine HCl (Hydroxyzine Hcl 25 Mg Tab) 25 mg PO Q4H PRN PRN Reason: Anxiety Stop: 03/13/23 19:20 Lorazepam (Lorazepam 0.5 Mg Tab) 0.5 mg PO BID PRN PRN Reason: Anxiety Stop: 03/13/23 21:02 Last Admin: 02/20/23 14:49 Dose: 0.5 mg Magnesium Hydroxide (Magnesium Hydroxide Susp 30 Ml Udc) 30 ml PO DAILY PRN PRN Reason: Constipation Stop: 03/13/23 19:20 Potassium Chloride (Potassium Chloride 20 Meq/15 Ml Udc) 20 meq PO BID DORIS Stop: 03/15/23 20:59 Last Admin: 02/21/23 08:53 Dose: 20 meq Quetiapine Fumarate (Quetiapine Fumarate 25 Mg Tablet) 25 mg PO HS DORIS Stop: 03/21/23 21:59 Last Admin: 02/20/23 21:41 Dose: 25 mg Sertraline HCl (Sertraline Hcl 100 Mg Tablet) 200 mg PO QAM DORIS Stop: 03/19/23 08:59 Last Admin: 02/21/23 08:53 Dose: 200 mg Sodium Chloride (Sodium Chloride 0.65% Na Soln 45 Ml (Brielle)) 1 - 2 sprays NA PRN PRN PRN Reason: Nasal Dryness/Congestion Stop: 03/13/23 19:20 Mental Health & Subst Abuse Tx Psychiatrist Name of Psychiatrist: Sammy Solis - Alexi Whitt PA-C Psychiatrist's Date Of Appointment With Psychiatric Provider: 03/13/23 Time of Appointment with Psychiatrist: 9:30 AM Psychiatric Appointment Comment: [address] [place] [address] Therapist Name of Therapist: Cassie Felipe - Kortney Roche LPC Therapist's Date of Therapist Appointment: 02/18/23 Time of Therapist Appointment: 12:00 PM Therapy Appointment Comment: [address] [place] [facility] [address] Post Discharge Appointments Primary Care Physician Name Of Family Doctor/PCP: [facility] - Dr. Fernanda Slaughter Primary Care Date of Future Appointment with PCP: 03/05/2023 Time of Appointment with PCP: 7:45 AM Provider Appointment Comment: [address], [address], [place] [address] (2) Obsessive compulsive disorder Obsessive-compulsive disorder type: mixed obsessional thoughts and acts Qualified Code(s): F42.2 - Mixed obsessional thoughts and acts
[2023-02-21 09:57] LABS: Chol HDL Ratio 2.7 (0-5)
[2023-02-21 10:30] LABS: Estimated Average Glucose 120 mg/dl; Hemoglobin A1C 5.8 % (4.5-5.6)
[2023-02-21] MEDS: QUEtiapine FUMARATE 25 MG TABLET PO SCH ×2 (14:10→20:52)
[2023-02-21] MEDS: clonazePAM 0.5 MG TAB PO SCH (14:10)
[2023-02-22] MEDS: POTASSIUM CHLORIDE 20 MEQ/15 ML UDC PO SCH ×2 (09:01→20:43)
[2023-02-22] MEDS: QUEtiapine FUMARATE 25 MG TABLET PO SCH ×2 (09:01→20:42)
[2023-02-22] MEDS: SERTRALINE HCL 100 MG TABLET PO SCH (09:02)
[2023-02-22] MEDS: clonazePAM 1 MG TAB PO SCH ×2 (09:03→20:45)
[2023-02-22] MEDS ORDERED: QUEtiapine FUMARATE 25 MG TABLET PO PRN (10:19)
[2023-02-22] MEDS: clonazePAM 0.5 MG TAB PO SCH (12:55)
[2023-02-22] MEDS ORDERED: clonazePAM 0.5 MG TAB PO SCH (13:00)
--- NOTE | 2023-02-22 16:56 | Psychiatric Progress Note ---
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 She is recently back on 2/3 the previous dose and reporting feeling overwhelmed. Much of this appears to represent anxiety, including fears of what she "might do". It seems likely that resuming the previously effective sertraline dose will eventually help. Right now the anxiety is sufficiently severe as to represent a significant risk factor for suicide. 02/22/2023: Noticeably brighter affect. Voices feeling as if she would like to be discharged soon, but remains apprehensive about this prospect. I've stopped PRN lorazepam and replaced it with low-dose quetiapine both because I think it would be preferable to pt not to have PRN benzodiazepine at home and because staff have voiced increasing concerns about pt's requests for this when she is evidencing no signs of anxiety. Thus far, she hasn't used it. There is no evidence of any adverse medication effects. 02/21/2023: Again acknowledges "a little improvement", still guarded about this. Denies any side effects. Nurses have voiced concerns about her requests for lorazepam when she not appear particularly anxious. Pt is already aware that she wouldn't be discharged on this medication. Will cautiously add 0.5 mg midday clonazepam dose. Has been tolerating cautious titration of quetiapine with evident benefit at low dose, so will continue titration of this med. 02/20/2023: Guardedly acknowledges that she might have had some improvement. She certainly continues to appear gradually to be improving. Still rapidly exhibits distress when discussing symptoms, but in social interactions and most of the time in groups is less distressed. Is ambivalent about whether she's noted any improvement or any side effects since switching to quetiapine from aripiprazole. Acknowledges that she's "just generally worried about" medications. 02/19/2023: Pt looks better, which all staff have noted. She's less psychomotorically retarded, has brighter affect, is more engaged. However, subjectively she feels unimproved. She feels as if she can't tolerate the aripiprazole due to "flashes", described as being exactly like her disturbing intrusive OCD imagery. She's still not willing to take olanzapine, can't really articulate her concern about it. After some discussion agreed to a trial of quetiapine. Discussed with pt results of the RYAN panel, which could be consistent with SLE. Recommended outpatient follow-up with a parts counter salesperson. 02/18/2023: Pt very demoralized by lack of rapid improvement, says she feels as if she's "never going to get better". Says that until today she was primarily having obsessive doubts about whether she deserved to live but that today she's been having thoughts that life wouldn't be worth living if it continued like this and that it would be worth killing herself to avoid that. She does deny any current suicidal plan or intent. She wants do "get more aggressive with medication". Reviewed that increasing SSRI won't make it work faster and that we just increased above what was shown to work for her in the past in order to ensure adequacy of dose. Reviewed that it appears she may be using maximal dose of clonazepam that doesn't sedate here; it's at least somewhat effective for her anxiety. Devoted considerable time to exploring possible augmentation with atypical antipsychotic. Olanzapine has some published evidence of potential efficacy for OCD, and among antipsychotics (all of which can precipitate or exacerbate OC symptoms) appears to have the lowest risk of worsening her obsessive-compulsive symptoms. It may have higher risk of metabolic side effects than some other atypical antipsychotics. Aripiprazole may have among the lowest risks of metabolic side effects but less evidence of benefit for OCD, though it seems to have relatively low risk of exacerbating it. Pt notes (for the first time) that she took aripiprazole to augment sertraline in the past and stopped because she gained weight. Despite this, she would like another trial. Risks and benefits of, and alternatives to, the use of aripiprazole (Abilify) for mood were reviewed. This discussion included but was not limited to issues known potentially to be associated with use of such medication, especially at high doses or with longer use, including sedation, weight gain, problems with glucose metabolism including Type II diabetes, problems with lipid metabolism, cardiac conduction problems, or rarely involuntary movements, parkinsonian symptoms, or even acute dystonia or life-threatening Neuroleptic Malignant Syndrome. Discussed the need for periodic monitoring of fasting glucose or Hemoglobin A1c and fasting lipid panel, which were ordered for baseline monitori ng. The patient agreed to start a trial of aripiprazole. 02/17/2023: Presents as less overwhelmed and anxious today, with no evidence at all of sedation following resumption of increased AM clonazepam. She continues to have intrusive, ruminative thoughts about whether she deserves to feel better or even to live, that she might be burden on her parents or the world at large but she's more able to distract herself with activities or interactions with others. Has not required any PRN lorazepam last night or thus far today, but is somewhat preoccupied with ensuring it's still available (my sense is feeling as if she needs a "safety net"). Has similarly tolerated increase of sertraline to 200 mg with no adverse effect. Sleeping fairly well. Insists she's eating more than has been documented. 02/16/2023: Had an episode of panic yesterday, obsessing over "never getting better" and that she might "always be a burden". Has used more lorazepam today with generally worse anxiety and more obsessive worrying about never getting better. Although she had possible sedation on higher clonazepam dose, anxiety is worse today. Discussed reverting to 1 mg BID. While 150 mg sertraline was effective in the past and likely to be effective now, pt is obsessing about "never getting better". A dose increase above an effective dose won't work better or faster, but could help ensure dose adequacy and perhaps help her feel more reassured that it will eventually work. 02/15/2023: Pt says that she'd been very worried that her being her on Thanksgiving would burden her parents with concern and worry. They visited yesterday and she was very relieved that, while they're clearly concerned about her welfare, they think she's "where [she] should be". Reports feeling more sedated today following increase of clonazepam to 1 mg BID. Discussed dividing daytime dose of clonazepam or reducing it back to 0.5 mg and continuing 1 mg at HS. Pt notes that she felt noticeably less anxious when she woke up this morning than on previous days here and would like to continue the 1 mg HS dose. 02/14/2023: Pt says she doesn't think she feels much better than at admission. She has been sleeping more and presents as more engaged and interactive. However, yesterday evening she was distressed by ruminative/obsessive thoughts and feeling overwhelmed by her inability to control them. Spoke about cognitive-behavioral approaches including distraction, thought-stopping. In light of how anxious she is about the obsessions, discussed increasing clonazepam. While this certainly would have no benefit for obsessive thoughts themselves, the secondary anxiety spawned by them should be responsive to anxiolytic medication. Pt has noted no daytime sedation or any other adverse effect from the current dose. Potassium level was 3.6 mmol/L on current replenishment regimen. 02/13/2023: Reports a bit of improvement in mood overall. Woke early feeling very anxious, got PRN lorazepam. Discussed that anxiety seems to be the primary factor in how overwhelmed she feels. Will continue clonazepam trial for this. Discussed her IIH at some length, particularly in terms of relapse risk off acetazolamide. She's not very concerned and would like to remain off that med. Has tolerated increase of sertraline to 150 mg, on which dose she did well in the past. She has noted no adverse effect attributable to any of her medication (including lorazepam, which she usually dislikes). 02/12/2023: Hypokalemia seems very likely a result of recently-stopped acetazolamide but for now needs to be replenished. It's unclear how the ps eudotumor cerebri might do without treatment but pt prefers not to resume acetazolamide. (1) Major depressive disorder, recurrent, severe without psychotic features: (2) Obsessive compulsive disorder: (3) Suicidal ideation: (4) Idiopathic intracranial hypertension: (5) Vitamin D deficiency: (6) Hypokalemia: Plan 02/22/2023: * continue quetiapine 25 mg & 50 mg QHS - increased 02/21/2023, started 02/19/2023 at 25 mg QHS * continue sertraline 200 mg daily - increased 02/16/2023 from 150 mg, increased 02/12/2023 from prior to admission dose of 100 mg (but previous effective dose had been 150 mg) * continue clonazepam 1 mg QAM, 0.5 mg midday, 1 mg QHS - increased 02/21/2023, increased 02/16/2023 back to 1 mg BID, decreased 02/15/2023 to 0.5 mg AM & 1 mg HS, increased 02/14/2023 to 1 mg BID, started 02/12/2023 at 0.5 mg BID * continue ergocalciferol 50,000 IU twice weekly - started 02/12/2023 * continue KCl 20 mEq BID * anticipate discharge tomorrow 02/21/2023: * increase quetiapine to 25 mg & 50 mg QHS - started 02/19/2023 * continue sertraline 200 mg daily - increased 02/16/2023 from 150 mg, increased 02/12/2023 from prior to admission dose of 100 mg (but previous effective dose had been 150 mg) * increase clonazepam to 1 mg QAM, 0.5 mg midday, 1 mg QHS - increased 02/16/2023 back to 1 mg BID, decreased 02/15/2023 to 0.5 mg AM & 1 mg HS, increased 02/14/2023 to 1 mg BID, started 02/12/2023 at 0.5 mg BID * continue ergocalciferol 50,000 IU twice weekly - started 02/12/2023 * continue KCl 20 mEq BID 02/20/2023: * continue trial of quetiapine 25 mg QHS - started 02/19/2023 * continue sertraline 200 mg daily - increased 02/16/2023 from 150 mg, increased 02/12/2023 from prior to admission dose of 100 mg (but previous effective do se had been 150 mg) * continue clonazepam 1 mg BID - increased 02/16/2023 back to 1 mg BID, decreased 02/15/2023 to 0.5 mg AM & 1 mg HS, increased 02/14/2023 to 1 mg BID, started 02/12/2023 at 0.5 mg BID * continue ergocalciferol 50,000 IU twice weekly - started 02/12/2023 * continue KCl 20 mEq BID 02/19/2023: * start trial of quetiapine 25 mg QHS * stop aripiprazole 5 mg QAM - started 02/18/2023 * continue sertraline 200 mg daily - increased 02/16/2023 from 150 mg, increased 02/12/2023 from prior to admission dose of 100 mg (but previous effective dose had been 150 mg) * continue clonazepam 1 mg BID - increased 02/16/2023 back to 1 mg BID, decreased 02/15/2023 to 0.5 mg AM & 1 mg HS, increased 02/14/2023 to 1 mg BID, started 02/12/2023 at 0.5 mg BID * continue ergocalciferol 50,000 IU twice weekly - started 02/12/2023 * continue KCl 20 mEq BID * HgbA1c and fasting lipid panel ordered for AM 02/18/2023: * start aripiprazole 5 mg QAM * continue sertraline 200 mg daily - increased 02/16/2023 from 150 mg, increased 02/12/2023 from prior to admission dose of 100 mg (but previous effective dose had been 150 mg) * continue clonazepam 1 mg BID - increased 02/16/2023 back to 1 mg BID, decreased 02/15/2023 to 0.5 mg AM & 1 mg HS, increased 02/14/2023 to 1 mg BID, started 02/12/2023 at 0.5 mg BID * continue ergocalciferol 50,000 IU twice weekly - started 02/12/2023 * continue KCl 20 mEq BID 02/17/2023: * continue sertraline 200 mg daily - increased 02/16/2023 from 150 mg, increased 02/12/2023 from prior to admission dose of 100 mg (but previous effective dose had been 150 mg) * continue clonazepam 1 mg BID - increased 02/16/2023 back to 1 mg BID, decreased 02/15/2023 to 0.5 mg AM & 1 mg HS, increased 02/14/2023 to 1 mg BID, started 02/12/2023 at 0.5 mg BID * continue ergocalciferol 50,000 IU twice weekly - started 02/12/2023 * continue KCl 20 mEq BID 02/16/2023: * increase sertraline to 200 mg daily - increased 02/12/2023 from prior to admision dose of 100 mg (but previous effective dose had been 150 mg) * increase clonazepam back to 1 mg BID - decreased 02/15/2023 to 0.5 mg AM & 1 mg HS, increased 02/14/2023 to 1 mg BID, started 02/12/2023 at 0.5 mg BID * continue ergocalciferol 50,000 IU twice weekly - started 02/12/2023 * continue KCl 20 mEq BID 02/15/2023: * continue sertraline 150 mg daily - increased 02/12/2023 from prior to admision dose of 100 mg (but previous effective dose had been 150 mg) * reduce clonazepam to 0.5 mg QAM & 1 mg QHS - increased 02/14/2023 to 1 mg BID, started 02/12/2023 at 0.5 mg BID * continue ergocalciferol 50,000 IU twice weekly - started 02/12/2023 * continue KCl 20 mEq BID 02/14/2023: * continue sertraline 150 mg daily - increased 02/12/2023 from prior to admision dose of 100 mg (but previous effective dose had been 150 mg) * increase clonazepam to 1 mg BID - started 02/12/2023 at 0.5 mg BID * continue ergocalciferol 50,000 IU twice weekly - started 02/12/2023 * continue KCl 20 mEq BID 02/13/2023: * continue sertraline 150 mg daily - increased 02/12/2023 from prior to admision dose of 100 mg (but previous effective dose had been 150 mg) * continue clonazepam 0.5 mg BID - started 02/12/2023 * continue ergocalciferol 50,000 IU twice weekly - started 02/12/2023 * continue KCl 20 mEq BID * basic metabolic panel, largely to recheck potassium 02/12/2023: The patient was admitted to [facility] on q15 minute checks (behavioral with suicide precautions) for safety.The patient will participate in group, recreational, and milieu therapies and will be offered additional individual and family sessions as cl inically appropriate. * increase sertraline to 150 mg daily * start ergocalciferol 50,000 IU twice weekly * start KCl 20 mEq BID Inventory Assets Strengths: supportive relationships, voluntary, good insight, intelligent employed, Needs: safety and stabilization, medication adjustment, additional coping skills, increased outpatient services Suicide Risk Level Suicide Risk Level: High-Moderate (q15 min suicide checks) (reports feeling safe now but continues to have suicidal thoughts) Risk Factors Assessment Male: No : Yes Do You Have Access To A Gun?: No Health Problems: Yes Mental Health Diagnoses: Yes Substance Use Disorders: Yes Previous Attempt: No Previous Psychiatric Hospitalization: Yes Hopelessness: Yes Protective Factors Assessment Responsible for Young Children: No 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 Chief Complaint "Better". Review of Systems Sleep Information Total Hours of Sleep: 6.5 Meal Information Percent Meal Consumed - Breakfast: 75 Percent Meal Consumed - Lunch: 50 Percent Meal Consumed - Dinner: 75 Subjective Subjective The patient was seen and assessed and interval progress reviewed in a multidisciplinary team meeting with the treatment team. For details, see the "Impression" section. Overall I spent a total of 28 minutes for this inpatient follow-up including review of chart records, direct evaluation of the patient [id number], counseling the patient, reconciling and ordering medication, medication education with the patient, risk assessment, discussion during interdisciplinary treatment rounds, and documentation in the electronic health record. Physical Exam Psychiatric Orientation: alert, oriented to person, oriented to place, oriented to time and cooperative Apperance: appropriately dressed, appropriately groomed and appeared stated age Eye Contact: good eye contact and + fair eye contact Motor Behavior: + psychomotor retardation Speech: normal rate/rhythm/volume of speech Affect: + depressed affect, + anxious affect and mood congruent with affect Mood: + depressed mood and + anxious mood Thought Process: linear/logical thought process and clear/coherent thought process Thought Content: + preoccupation, + obsessions, + cognitive distortions, reality based without delusions, + hopelessness and + self deprecation Suicidal Thoughts: denies suicidal plan and denies suicidal intent; + reports suicidal thoughts Homicidal Thoughts: denies homicidal thoughts Hallucinations: no auditory hallucinations and no visual hallucinations Cognition: recent memory grossly intact, remote memory grossly intact, attention grossly intact and language grossly intact Estimated Intelligence: consistent with education level Insight: + fair insight Judgment: + fair judgement Vital Signs (Past 24 Hours) Last Vital Signs Temp 36.5 C 02/22/23 06:37 Pulse 91 H 02/22/23 06:38 Resp 16 02/22/23 06:37 BP 101/73 02/22/23 06:38 Pulse Ox 98 02/17/23 06:49 O2 Del Method Room Air 02/17/23 06:49 Results & Data ([facility]) Current Inpatient Medications Current Inpatient Medications: Current Inpatient Medications Acetaminophen (Acetaminophen 325 Mg Tab) 650 mg PO Q4H PRN PRN Reason: Headache or Minor Fever Stop: 03/13/23 19:20 Al Hydrox/Mg Hydrox/Simethicone (Aluminum/Magnesium Susp 30 Ml Udc) 30 ml PO Q4H PRN PRN Reason: GI Upset Stop: 03/13/23 19:20 Bismuth Subsalicylate (Bismuth Subsalicylate Liqd 236 Ml) 15 ml PO PRN PRN PRN Reason: Loose Stool Stop: 03/13/23 19:20 Clonazepam (Clonazepam 1 Mg Tab) 1 mg PO BID DORIS Stop: 03/18/23 20:59 Last Admin: 02/22/23 09:03 Dose: 1 mg Clonazepam (Clonazepam 0.5 Mg Tab) 0.5 mg PO DAILY@1300 [facility] Stop: 03/23/23 14:04 Last Admin: 02/22/23 12:55 Dose: 0.5 mg Ergocalciferol (Ergocalciferol 50,000 Units 1250 Mcg Cap) 50,000 units PO SuWe@0900 [facility] Stop: 03/15/23 16:29 Last Admin: 02/20/23 09:06 Dose: 50,000 units Hydroxyzine HCl (Hydroxyzine Hcl 25 Mg Tab) 50 mg PO HSZ PRN PRN Reason: Insomnia Stop: 03/13/23 19:20 Hydroxyzine HCl (Hydroxyzine Hcl 25 Mg Tab) 25 mg PO Q4H PRN PRN Reason: Anxiety Stop: 03/13/23 19:20 Magnesium Hydroxide (Magnesium Hydroxide Susp 30 Ml Udc) 30 ml PO DAILY PRN PRN Reason: Constipation Stop: 03/13/23 19:20 Potassium Chloride (Potassium Chloride 20 Meq/15 Ml Udc) 20 meq PO BID DORIS Stop: 03/15/23 20:59 Last Admin: 02/22/23 09:01 Dose: 20 meq Quetiapine Fumarate (Quetiapine Fumarate 25 Mg Tablet) 25 mg PO QAM DORIS Stop: 03/23/23 13:44 Last Admin: 02/22/23 09:01 Dose: 25 mg Quetiapine Fumarate (Quetiapine Fumarate 25 Mg Tablet) 50 mg PO HS DORIS Stop: 03/23/23 21:59 Last Admin: 02/21/23 20:52 Dose: 50 mg Quetiapine Fumarate (Quetiapine Fumarate 25 Mg Tablet) 25 mg PO Q6 PRN PRN Reason: joesph or psychosis Stop: 03/24/23 11:59 Sertraline HCl (Sertraline Hcl 100 Mg Tablet) 200 mg PO QAM DORIS Stop: 03/19/23 08:59 Last Admin: 02/22/23 09:02 Dose: 200 mg Sodium Chloride (Sodium Chloride 0.65% Na Soln 45 Ml ([place])) 1 - 2 sprays NA PRN PRN PRN Reason: Nasal Dryness/Congestion Stop: 03/13/23 19:20 Mental Health & Subst Abuse Tx Psychiatrist Name of Psychiatrist: Sammy Solis - Alexi Whitt PA-C Psychiatrist's Date Of Appointment With Psychiatric Provider: 03/13/23 Time of Appointment with Psychiatrist: 9:30 AM Psychiatric Appointment Comment: [address] [place] [address], [place] [address] Therapist Name of Therapist: Cassie Felipe - Kortney Roche LPC Therapist's Date of Therapist Appointment: 02/18/23 Time of Therapist Appointment: 12:00 PM Therapy Appointment Comment: [id number] , [place] [address] Post Discharge Appointments Primary Care Physician Name Of Family Doctor/PCP: [facility] - Dr. Fernanda Slaughter Primary Care Date of Future Appointment with PCP: 03/05/2023 Time of Appointment with PCP: 7:45 AM Provider Appointment Comment: [address], [address], [place] [address] (2) Obsessive compulsive disorder Obsessive-compulsive disorder type: mixed obsessional thoughts and acts Qualified Code(s): F42.2 - Mixed obsessional thoughts and acts
[2023-02-23] MEDS: QUEtiapine FUMARATE 25 MG TABLET PO SCH (09:09)
[2023-02-23] MEDS: SERTRALINE HCL 100 MG TABLET PO SCH (09:09)
[2023-02-23] MEDS: POTASSIUM CHLORIDE 20 MEQ/15 ML UDC PO SCH (09:09)
[2023-02-23] MEDS ORDERED: DESTROY THIS MEDICATION ONE (09:30)
[2023-02-23] MEDS: clonazePAM 0.5 MG TAB PO SCH (12:22)
--- NOTE | 2023-02-23 17:29 | Discharge Summary ---
Date of Service February 23, 2023 History of Present Illness As part of a thorough review of the available medical records, I have read and confirmed the following note by the ED physician: "This is a 32-year-old female presenting for suicidal ideation. Patient states that she was here about 1 to 2 weeks ago for her suicide ideation. She states that she had an inpatient stay at [facility]. During the stay she did not feel that she got the help she needed and actually feels the same if not worse than previously. She is still suicidal, has no energy to live. She states she has had thoughts of strangling/hanging herself. She is requesting voluntary admission for mental health treatment. She has had no medical issues at this time including fever, chills, nausea, vomiting, chest pain, shortness of breath. She does have a history of idiopathic intracranial hypertension but has had no headache or other symptoms. " the following note by the ED psychiatric family independence case manager: "Met with patient bedside to complete mental health evaluation. Patient presents sad, depressed, anxious, tearful throughout evaluation, but remains cooperative in answering all questions asked of him. Patient was admitted to [facility] on 02/02/2023 and recently discharged on Saturday. Patient did not believe her stay was helpful and felt the programming was very disorganized. Immediately upon discharge on Saturday, she began having fairly intense suicidal ideations which continued to worsen over the weekend. Patient continues to have suicidal ideations, but no definite plan, but states, not if, but when. Patient reports she has been having some gruesome obsessive thoughts of killing herself via strangulation. Patient has also experienced dark thoughts of other people dying, denies homicidal ideations or aggressive/assaultive behaviors. Patient does not feel safe at home with these thoughts she is having and believes she needs help. While patient was admitted at [facility], they were titrating her Zoloft up and currently she is taking 100mg for the past 4 days. Patient suspects that this may be causing worsening negative thoughts. Patient is diagnosed with MDD, OCD and NADEEM. Patient has been [place] [facility] [place], [facility] and a facility in [place]. Patient identifies stressors as ongoing mental health issues, job and financial. Patient reports depressive symptoms as bouts of crying, feelings of helpless/hopelessness, self-devaluation, guilt, loss of daily functioning, lack of motivation, isolating, anhedonia, poor concentration, decrease in ADLs, appetite and sleep, reporting 4-5 hours a night. Patient describes severe anxiety on most days with symptoms of chest discomfort, restlessness, skin crawling, numbness and feeling that arms are burning with occasional panic attacks. Patient reports about 1.5 years ago she used to abuse alcohol and had her first drink in December, since then. Patient denes drug and tobacco use. 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 Patient especially enjoys reading, writing and spending time with friends and family. Patient has lost all interest in her activities. Patient is diagnosed with intracranial hypertension, but is not currently being treated for it." and the following note by the psychiatric liaison nurse: "Pt. presented to ED with increased SI with plan of strangulation. She states she has been experiencing increased depression, with thoughts of suicide. She does have a history of mental health [place], [facility], [place], [place] and last at [facility] and was discharged on 02/08/23. She states it wasn't beneficial. They did titrate her Setraline to 100mg during her stay. She is prescribed this by her PCP at [facility], ( Fernanda Zelaya). She also states she had been taking .5 of Ativan PRN, however she requests to no longer take this. She denies SIB. She denies any previous SA. She states she did have her first therapy appointment with Kortney Roche. She identifies her stressors as work, financial and mental health issues. Denies any drug or alcohol use. She does report having a diagnosis of idiopathic intracranial hypertension and had been on a diuretic for this and is no longer taking it. She did sign a GENARO for mother (Cielo), Kortney Roche (therapist), Fernanda Aguirre (PCP)" Review of the medical record reveals no previous or outside psychiatric records here. Pt. carries diagnosis of major depression and OCD. Review of pertinent labs reveals they are hypokalemia and moderately low vitamin D. A urine toxicology screen was negative for all tested substrates. BAL was <10 mg/dL. Pt says that in her 20's she was diagnosed with OCD and was treated with sertraline 150 mg for some time with good response. She doesn't recall any other medication trials. She slowly gained weight and, working with her PCP, tapered the sertraline and eventually stopped it this summer. She began feeling increasingly depressed, as well as experiencing worsening obsessions which in her case take the form of gruesome images, and started feeling increasingly hopeless and eventually suicidal. She had a 6-day stay at [facility] from which she was discharged 4 days ago. During that stay, sertraline was resumed and titrated to 100 mg. Pt reports continuing to feel hopeless and suicidal. Has a history of idiopathic intracranial hypertension, diagnosed after a period of hemifacial paresthesia, intense headache, and eventually papilledema. She had increased CSF pressure on LP. She was treated with acetazolamide but stopped in last week due to dry mouth. Physical Exam Psychiatric Oriented to person, place, time and situation. Ms. Edge is appropriately dressed and groomed and appears to be of a healthy weight Fair No abnormal involuntary movements. Spontaneous, delivered at a regular rate, rhythm and volume. Somewhat anxious, but generally euthymic. She smiles and laughs appropriately several times during the encounter. "Much better. Pretty good at this point." Patient demonstrates tight associations with goal-directed thinking. The patient's thought content is devoid of any psychotic features. She acknowledges a tendency to be obsessive in terms of experiencing ego-dystonic thoughts. She also describes others symptoms of OCD including checking behaviors No recent suicidal thoughts. She again clarifies today that her suicidal thoughts were alien to her, and were not associated with any actual suicidal plan or intent. Vital Signs (Past 24 Hours) Last Vital Signs Temp 36.6 C 02/23/23 12:02 Pulse 72 02/23/23 12:02 Resp 16 02/23/23 12:02 BP 113/81 02/23/23 12:02 Pulse Ox 98 02/23/23 12:02 O2 Del Method Room Air 02/17/23 06:49 The physical examination at admission is excepted for the purposes of discharge. Principal Diagnosis Major depressive disorder, recurrent, severe without psychotic features. Psychiatric Data See daily stay summary. In short, safety was maintained and the patient was cooperative with care. Medication changes included and they tolerated this well. A family session was held and safety plan was completed prior to discharge. Day of Discharge Assessment Today the patient voices readiness for discharge. They note improvement in mood and deny thoughts to harm self or others. Thoughts remain organized and they are improved from admission. There is no evidence of psychosis. They agree to take mediations as prescribed and keep follow-up appointments. They are stable for discharge to outpatient level of care. Transition of Care Transition Of Care Record: was reviewed with the patient Advance Directives Advance Directives Information Provided: Yes Advance Directives: No Mental Health Advance Directive: No Advance Directives on File: No Living Will: No Power of Garde Manager: No Advance Directives Reason:: Declines as Mental Health Visit. Suicide Risk Level Suicide Risk Level Comments: At the time of discharge, the patient is considered to be at low risk for suicide. She is future oriented, is able to describe in some detail her plan for community safety, and clarifies that she has never had any suicidal plan or intent. Instead, thoughts of suicide were extremely distressing to the patient and were highly ego-dystonic. These alien intrusive thoughts are more likely explained through her diagnosis of OCD. 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[employer]) Stable Relationships: Yes Supportive Family: Yes Good Rapport with Provider: Yes Discharge Data Lab Results 02/11/23 02/11/23 02/11/23 13:32 14:15 16:50 WBC 4.83 RBC 4.88 Hgb 12.0 Hct 38.7 MCV 79.3 L MCH 24.6 L MCHC 31.0 L RDW Std Deviation 44.4 RDW Coeff of Krista 15.5 H Plt Count 342 MPV 11.3 Immature Gran % (Auto) 0.2 Neut % (Auto) 61.4 Lymph % (Auto) 24.6 [place] % (Auto) 12.6 Eos % (Auto) 0.2 Baso % (Auto) 1.0 Neut # (Auto) 2.96 Lymph # (Auto) 1.19 L [place] # (Auto) 0.61 H Eos # (Auto) 0.01 Baso # (Auto) 0.05 Immature Gran # (Auto) 0.01 ESR 26 H Sodium 138 Potassium 2.9 L Chloride 99 Carbon Dioxide 25 Anion Gap 14 H BUN 6 Creatinine 0.55 L Est Cr Clr Drug Dosing 151.7 Est GFR ( Amer) 143.8 Est GFR (Non-Af Amer) 124.1 BUN/Creatinine Ratio 10.9 Glucose 92 Estimat Average Glucose Hemoglobin A1c Calcium 9.6 Total Bilirubin 0.6 AST 16 ALT 14 Alkaline Phosphatase 52 Total Protein 7.9 Albumin 4.2 Globulin 3.7 Albumin/Globulin Ratio 1.1 Triglycerides Cholesterol LDL Cholesterol, Calc VLDL Cholesterol, Calc HDL Cholesterol Cholesterol/HDL Ratio Vitamin B12 846 25-OH Vitamin D Total 25.0 L Folate 18.04 TSH 1.287 Urine Color Yellow Urine Appearance Cloudy A Urine pH 6.5 Ur Specific [place] 1.016 Urine Protein Negative Urine Glucose (UA) Negative Urine Ketones 4+ H Urine Blood Negative Urine Nitrite Negative Urine Bilirubin Negative Urine Urobilinogen Negative Ur Leukocyte Esterase Negative Urine WBC (Auto) 1-5 Urine RBC (Auto) 0-4 U Hyaline Cast (Auto) 1-5 U Epithel Cells (Auto) >30 H Urine Bacteria (Auto) 1+ H Salicylates < 3.0 L Urine Opiates Screen Neg Ur Methadone, Qual Neg Acetaminophen < 3 L Urine Barbiturates Neg Ur Phencyclidine (PCP) Neg U Amphetamin/Meth Scrn Neg MDMA (Ecstasy) Screen Neg U Benzodiazepines Scrn Neg Ur Cocaine Metabolite Neg U Marijuana (THC) Screen Neg Ethyl Alcohol mg/dL < 10.0 RYAN Screen RYAN Titer RYAN Pattern SARS-CoV-2, RNA, NAAT NEGATIVE 02/12/23 02/13/23 02/21/23 15:11 17:34 09:09 WBC RBC Hgb Hct MCV MCH MCHC RDW Std Deviation RDW Coeff of Krista Plt Count MPV Immature Gran % (Auto) Neut % (Auto) Lymph % (Auto) [place] % (Auto) Eos % (Auto) Baso % (Auto) Neut # (Auto) Lymph # (Auto) [place] # (Auto) Eos # (Auto) Baso # (Auto) Immature Gran # (Auto) ESR Sodium 138 Potassium 3.7 Chloride 101 Carbon Dioxide 28 Anion Gap 9 BUN 7 Creatinine 0.61 Est Cr Clr Drug Dosing 136.3 Est GFR ( Amer) 139.0 Est GFR (Non-Af Amer) 120.0 BUN/Creatinine Ratio 11.5 Glucose 83 Estimat Average Glucose 120 Hemoglobin A1c 5.8 H Calcium 9.4 Total Bilirubin AST ALT Alkaline Phosphatase Total Protein Albumin Globulin Albumin/Globulin Ratio Triglycerides 76 Cholesterol 171 LDL Cholesterol, Calc 93 VLDL Cholesterol, Calc 15 HDL Cholesterol 63 Cholesterol/HDL Ratio 2.7 Vitamin B12 25-OH Vitamin D Total Folate TSH Urine Color Urine Appearance Urine pH Ur Specific [place] Urine Protein Urine Glucose (UA) Urine Ketones Urine Blood Urine Nitrite Urine Bilirubin Urine Urobilinogen Ur Leukocyte Esterase Urine WBC (Auto) Urine RBC (Auto) U Hyaline Cast (Auto) U Epithel Cells (Auto) Urine Bacteria (Auto) Salicylates Urine Opiates Screen Ur Methadone, Qual Acetaminophen Urine Barbiturates Ur Phencyclidine (PCP) U Amphetamin/Meth Scrn MDMA (Ecstasy) Screen U Benzodiazepines Scrn Ur Cocaine Metabolite U Marijuana (THC) Screen Ethyl Alcohol mg/dL RYAN Screen POSITIVE A RYAN Titer 1:80 H RYAN Pattern Nuclear, Homogeneous A SARS-CoV-2, RNA, NAAT Hospital Course (1) Major depressive disorder, recurrent, severe without psychotic features: See daily progress notes. Substantial improvement in her target depressive symptoms have been observed through improvement in her affect and subjective reports of improvement. (2) Obsessive compulsive disorder: See daily progress notes. Patient acknowledges that she has ongoing obsessive thoughts, but also says that she has learned through the current hospitalization that these obsessive thoughts no part of her obsessive compulsive dyad, and do not know of themselves indicate that she is at risk for causing physical harm to herself or to the person or property of others (3) Suicidal ideation: The patient reports that she is not experiencing any suicidal thoughts at present. She also confirms convincingly that she now realizes that she has never had any actual suicidal plan or intent. Instead, her distress was related to the fact that the suicidal thoughts that were intrusive and alien to her were highly ego-dystonic and, initially, caused her to think that she was somehow "t urning evil." Patient now voices a realization that that is not what these thoughts mean, and she finds it very comforting to understand that this is not an uncommon problem in individuals who have a diagnosis of OCD (i.e., alien, ego-dystonic, intrusive thoughts.) She is able to accurately recite her plan for community safety. She is also future oriented, and reports that with improved mood she feels much better able to face her return to the community. (4) Idiopathic intracranial hypertension: Follow-up neurology as required (5) Vitamin D deficiency: Continue vitamin D supplements as prescribed. (6) Hypokalemia: Avoid diuretics that may lead to hypokalemia. Ongoing monitoring through primary care. Continue potassium supplementation. Plan 02/22/2023: * continue quetiapine 25 mg & 50 mg QHS - increased 02/21/2023, started 02/19/2023 at 25 mg QHS * continue sertraline 200 mg daily - increased 02/16/2023 from 150 mg, increased 02/12/2023 from prior to admission dose of 100 mg (but previous effective dose had been 150 mg) * continue clonazepam 1 mg QAM, 0.5 mg midday, 1 mg QHS - increased 02/21/2023, increased 02/16/2023 back to 1 mg BID, decreased 02/15/2023 to 0.5 mg AM & 1 mg HS, increased 02/14/2023 to 1 mg BID, started 02/12/2023 at 0.5 mg BID * continue ergocalciferol 50,000 IU twice weekly - started 02/12/2023 * continue KCl 20 mEq BID * anticipate discharge tomorrow 02/21/2023: * increase quetiapine to 25 mg & 50 mg QHS - started 02/19/2023 * continue sertraline 200 mg daily - increased 02/16/2023 from 150 mg, increased 02/12/2023 from prior to admission dose of 100 mg (but previous effective dose had been 150 mg) * increase clonazepam to 1 mg QAM, 0.5 mg midday, 1 mg QHS - increased 02/16/2023 back to 1 mg BID, decreased 02/15/2023 to 0.5 mg AM & 1 mg HS, increased 02/14/2023 to 1 mg BID, started 02/12/2023 at 0.5 mg BID * continue ergocalciferol 50,000 IU twice weekly - started 02/12/2023 * continue KCl 20 mEq BID 02/20/2023: * continue trial of quetiapine 25 mg QHS - started 02/19/2023 * continue sertraline 200 mg daily - increased 02/16/2023 from 150 mg, increased 02/12/2023 from prior to admission dose of 100 mg (but previous effective dose had been 150 mg) * continue clonazepam 1 mg BID - increased 02/16/2023 back to 1 mg BID, d ecreased 02/15/2023 to 0.5 mg AM & 1 mg HS, increased 02/14/2023 to 1 mg BID, started 02/12/2023 at 0.5 mg BID * continue ergocalciferol 50,000 IU twice weekly - started 02/12/2023 * continue KCl 20 mEq BID 02/19/2023: * start trial of quetiapine 25 mg QHS * stop aripiprazole 5 mg QAM - started 02/18/2023 * continue sertraline 200 mg daily - increased 02/16/2023 from 150 mg, increased 02/12/2023 from prior to admission dose of 100 mg (but previous effective dose had been 150 mg) * continue clonazepam 1 mg BID - increased 02/16/2023 back to 1 mg BID, decreased 02/15/2023 to 0.5 mg AM & 1 mg HS, increased 02/14/2023 to 1 mg BID, started 02/12/2023 at 0.5 mg BID * continue ergocalciferol 50,000 IU twice weekly - started 02/12/2023 * continue KCl 20 mEq BID * HgbA1c and fasting lipid panel ordered for AM 02/18/2023: * start aripiprazole 5 mg QAM * continue sertraline 200 mg daily - increased 02/16/2023 from 150 mg, increased 02/12/2023 from prior to admission dose of 100 mg (but previous effective dose had been 150 mg) * continue clonazepam 1 mg BID - increased 02/16/2023 back to 1 mg BID, decreased 02/15/2023 to 0.5 mg AM & 1 mg HS, increased 02/14/2023 to 1 mg BID, started 02/12/2023 at 0.5 mg BID * continue ergocalciferol 50,000 IU twice weekly - started 02/12/2023 * continue KCl 20 mEq BID 02/17/2023: * continue sertraline 200 mg daily - increased 02/16/2023 from 150 mg, increased 02/12/2023 from prior to admission dose of 100 mg (but previous effective dose had been 150 mg) * continue clonazepam 1 mg BID - increased 02/16/2023 back to 1 mg BID, decreased 02/15/2023 to 0.5 mg AM & 1 mg HS, increased 02/14/2023 to 1 mg BID, started 02/12/2023 at 0.5 mg BID * continue ergocalciferol 50,000 IU twice weekly - started 02/12/2023 * continue KCl 20 mEq BID 02/16/2023: * increase sertraline to 200 mg daily - increased 02/12/2023 from prior to admision dose of 100 mg (but previous effective dose had been 150 mg) * increase clonazepam back to 1 mg BID - decreased 02/15/2023 to 0.5 mg AM & 1 mg HS, increased 02/14/2023 to 1 mg BID, started 02/12/2023 at 0.5 mg BID * continue ergocalciferol 50,000 IU twice weekly - started 02/12/2023 * continue KCl 20 mEq BID 02/15/2023: * continue sertraline 150 mg daily - increased 02/12/2023 from prior to admision dose of 100 mg (but previous effective dose had been 150 mg) * reduce clonazepam to 0.5 mg QAM & 1 mg QHS - increased 02/14/2023 to 1 mg BID, started 02/12/2023 at 0.5 mg BID * continue ergocalciferol 50,000 IU twice weekly - started 02/12/2023 * continue KCl 20 mEq BID 02/14/2023: * continue sertraline 150 mg daily - increased 02/12/2023 from prior to admision dose of 100 mg (but previous effective dose had been 150 mg) * increase clonazepam to 1 mg BID - started 02/12/2023 at 0.5 mg BID * continue ergocalciferol 50,000 IU twice weekly - started 02/12/2023 * continue KCl 20 mEq BID 02/13/2023: * continue sertraline 150 mg daily - increased 02/12/2023 from prior to admision dose of 100 mg (but previous effective dose had been 150 mg) * continue clonazepam 0.5 mg BID - started 02/12/2023 * continue ergocalciferol 50,000 IU twice weekly - started 02/12/2023 * continue KCl 20 mEq BID * basic metabolic panel, largely to recheck potassium 02/12/2023: [facility] on q15 minute checks (behavioral with suicide precautions) for safety.The patient will participate in group, recreational, and milieu therapies and will be offered additional individual and family sessions as clinically appropriate. * increase sertraline to 150 mg daily * start ergocalciferol 50,000 IU twice weekly * start KCl 20 mEq BID Mental Health & Subst Abuse Tx Psychiatrist Name of Psychiatrist: Sammy Solis - Alexi Whitt PA-C Psychiatrist's Date Of Appointment With Psychiatric Provider: 03/13/23 Time of Appointment with Psychiatrist: 9:30 AM Psychiatric Appointment Comment: [address] [place] [id number] Psychiatrist Release of Information: Obtained, Reviewed and Signed Therapist Name of Therapist: Cassie Felipe - Kortney Roche LPC Therapist's Date of Therapist Appointment: . Time of Therapist Appointment: . Therapy Appointment Comment: [facility] [place] [address] Therapist Release of Information: Obtained, Reviewed and Signed Post Discharge Appointments Primary Care Physician Name Of Family Doctor/PCP: [facility] - Dr. Fernanda Slaughter Primary Care Date of Future Appointment with PCP: 03/05/2023 Time of Appointment with PCP: 7:45 AM Provider Appointment Comment: [address], [address], [place] [address] Primary Care Release of Information: Obtained, Reviewed and Signed Contact Information Discharge Discharge Address: [address] [place] [address], [place] [address] Discharge Plan Discharge Items Patient Disposition: Home - Self-Care Reason For Visit: MDD Discharge Diagnosis: Major Depressive Disorder; OCD Condition on Discharge: Good Health Concerns: As above Activity: Resume your previous activity Non-emergency contact: Primary Care Provider, Psychiatrist and Therapist Call non-emergency contact if: you have any medication questions and your symptoms worsen Follow-up/Referrals: Fernanda Piedra, [Primary Care Provider] - Diet: Regular Addtl Attending Provider Instructions: Treat your "O Thoughts" as you would a wasp in the room. Don't try to wave it away. Just say to yourself, "There's that darn wasp again" and let it be, secure in the knowledge that while distressing, such thoughts are harmless. Pending Studies at Discharge: No Stand-Alone Forms: My [facility], Smoking Cessation Medications and DC Order Prescriptions: New quetiapine 25 mg Tablet 25 mg PO QAM Qty: 30 0RF clonazepam 0.5 mg Tablet 0.5 mg PO DAILY@1300 Qty: 60 0RF sertraline 100 mg Tablet 200 mg PO QAM Qty: 60 0RF clonazepam 1 mg Tablet 1 mg PO BID Qty: 60 0RF potassium chloride 20 mEq/15 mL Liquid 20 meq PO BID Qty: 60 0RF quetiapine 50 mg tablet 50 mg PO HS Qty: 30 0RF Continued acetazolamide 500 mg capsule, extended release 500 mg PO BID Qty: 30 1RF Discontinued sertraline 50 mg tablet 50 mg PO DAILY Discharge Orders: Discharge Order (Routine); Ordered 02/23/23 Ordered By: Zaki Julien Admission Data Admit Date/Time: 02/11/23 18:34 Attending Provider: Jack Mendoza Admit Provider: Jack Mendoza Primary Care Provider: Fernanda Piedra Other Interventions: Discharge Summary Assessment (RN) Last Done: 02/23/23 12:02 PSY Interdisciplinary Discharge Planning Last Done: 02/23/23 12:05 C[place] [address] D/C day mgmt > 30 min Patient Type Established Medical Decision Making Moderate Complexity Diagnoses Major depressive disorder, recurrent, severe without psychotic features F33.2 Mixed obsessional thoughts and acts F42.2 Obsessive-compulsive disorder type: mixed obsessional thoughts and acts Suicidal ideation R45.851 Idiopathic intracranial hypertension G93.2 Vitamin D deficiency E55.9 Hypokalemia E87.6 Time Spent (min) 50
== END 2023-02-23 12:38 | disposition home or self-care (01) | DRG 885 ==
LOC: ED 12:57 → 3S 18:20